=== PATIENT | female | born 1940 | race Caucasian/White ===

== ENCOUNTER 2018-03-09 14:18 | Inpatient (IN) ==
[2018-03-09] MEDS ORDERED: 0.9 % Sodium Chloride 1,000 ML IVC ONE (14:35)
[2018-03-09 14:54] LABS: Basophils % 0.5 %; Eosinophils % 0.5 %; Hematocrit 37.8 % (35.3-44.9); Hemoglobin 13.9 g/dL (11.5-15.4); Immature Granulocytes % 0.5 % (0-4); Lymphocytes # 2.1 K/mcL (0.6-4.6); Lymphocytes % 27.2 %; Mean Corpuscular HGB Conc 36.8 g/dL (31.6-35.5); Mean Corpuscular Hemoglobin 31.5 pg (28.0-33.3); Mean Corpuscular Volume 85.7 fL (83.0-100.0); Mean Platelet Volume 9.2 fL (9.4-12.4); Monocytes # 0.6 K/mcL (0.0-1.3); Monocytes % 7.5 %; Neutrophils # 4.9 K/mcL (1.6-8.9); Platelet Count 218 K/mcL (140-400); Red Blood Count 4.41 M/mcL (3.82-4.97); Red Cell Distribution Width 13.8 % (11.5-14.5); Segmented Neutrophils % 63.8 %
[2018-03-09 15:19] LABS: Alanine Aminotransferase 21 Units/L (7-52); Albumin 4.3 g/dL (3.5-5.7); Albumin/Globulin Ratio 1.5 (1.1-2.2); Alkaline Phosphatase 60 Units/L (34-104); Aspartate Amino Transferase 23 Units/L (13-39); BUN/Creatinine Ratio 12 (6-26); Bilirubin,Total 0.6 mg/dL (0.3-1.0); Blood Urea Nitrogen 9 mg/dL (8-23); Calcium 9.3 mg/dL (8.6-10.3); Carbon Dioxide 26 mEq/L (23-29); Chloride 90 mEq/L (98-107); Globulin 2.9 g/dL (2.4-3.5); Glucose 143 mg/dL (70-105); Magnesium 1.7 mg/dL (1.6-2.6); Osmolality,Calculated 263 (280-300); Phosphorous 2.1 mg/dL (2.7-4.5); Potassium 2.8 mEq/L (3.5-5.1); Sodium 126 mEq/L (136-145); Total Protein 7.2 g/dL (6.4-8.9); Troponin I < 0.03 ng/mL (< 0.04); eGFR For African Americans > 60 (> 60); eGFR For Non-African Americans > 60 (> 60)
[2018-03-09] MEDS ORDERED: Potassium Chloride 40 MEQ, Lidocaine 1% 2 ML in D5% in Water 500 ML IVPB ONE (15:34)
[2018-03-09 15:49] LABS: Bilirubin,Urine Negative (Negative); Blood,Urine Negative (Negative); Clarity,Urine Clear (Clear); Color,Urine Yellow (Yellow); Glucose,Urine (UA) Normal (Normal); Ketones,Urine Negative (Negative); Leukocyte Esterase,Urine Trace (Negative); Nitrite,Urine Negative (Negative); Protein,Urine Negative (Neg-Trace); Urobilinogen,Urine Normal (Normal)
[2018-03-09 16:05] LABS: Bacteria,Urine Few per hpf (None-Few); Renal Epithelial Cells,Urine Few per hpf (None-Few); Squamous Epithelial Cell,Urine Few per lpf (None-Few); Transitional Epi Cells,Urine Few per hpf (None-Few); WBC,Urine 0-3 per hpf (0-3)
[2018-03-09 16:29] LABS: VBG Ionized Calcium 1.05 mmol/L (1.15-1.35)
--- NOTE | 2018-03-09 17:00 | Emergency Department Note ---
Disposition Clinical Impression: Hyponatremia, Hypokalemia Disposition: Admitted As Inpatient Condition: Good Referrals: Conor Braxton MD [Primary Care Provider] - Time of Disposition: 16:30 General Adult HPI - General Chief complaint: ED General Medical Stated complaint: Potasium/sodium LOW Time Seen by Provider: 03/09/18 14:24 Source: patient Mode of arrival: ambulatory Limitations: no limitations Nursing Notes Reviewed: Yes Vital Signs Reviewed: Yes - History of Present Illness Pain Scale: 4 - Related Data Home Medications Medication Instructions Recorded Confirmed Aripiprazole [Abilify] 0 mg PO QPM 03/09/18 03/09/18 Clopidogrel [Plavix] 75 mg PO QPM 03/09/18 03/09/18 Diclofenac Sodium [Voltaren] 1 appl TP QID PRN 03/09/18 03/09/18 HYDROcodone/Acet 5/325 mg [[place] 0.5 - 1 tab PO BID PRN 03/09/18 03/09/18 5-325 mg] Hydrocortisone Rectal CRM 1 appl RC BID 03/09/18 03/09/18 [Proctosol-HC] Ketorolac Tromethamine [Acular] 1 drop BOTH EYES DAILY 03/09/18 03/09/18 LORazepam [Ativan] 0.5 mg PO BID PRN 03/09/18 03/09/18 Levothyroxine [Synthroid] 150 mcg PO DAILY 03/09/18 03/09/18 Lidocaine Patch [Lidoderm 5% patch] 1 each TP DAILY PRN 03/09/18 03/09/18 Ondansetron HCl [Zofran] 4 mg PO Q8H PRN 03/09/18 03/09/18 Quetiapine Fumarate [SEROquel] 50 mg PO HS 03/09/18 03/09/18 Rosuvastatin Calcium [Crestor] 10 mg PO HS 03/09/18 03/09/18 Sertraline [Zoloft] 150 mg PO QPM 03/09/18 03/09/18 Valsartan [Diovan] 160 mg PO DAILY 03/09/18 03/09/18 Allergies Allergy/AdvReac Type Severity Reaction Status Date / Time acetaminophen [From Percocet] Allergy Itching Verified 03/09/18 16:38 codeine Allergy Itching Verified 03/09/18 16:38 Oxycodone [From Percocet] Allergy Itching Verified 03/09/18 16:38 Amoxicillin [From Augmentin] AdvReac Nausea Verified 03/09/18 16:38 cefuroxime [From Ceftin] AdvReac Itching Verified 03/09/18 16:38 clavulanic acid AdvReac Nausea Verified 03/09/18 16:38 [From Augmentin] Erythromycin Base AdvReac Nausea Verified 03/09/18 16:38 levofloxacin [From Levaquin] AdvReac Itching Verified 03/09/18 16:38 lisinopril AdvReac Cough Verified 03/09/18 16:38 melatonin AdvReac Itching Verified 03/09/18 16:38 naproxen AdvReac Itching Verified 03/09/18 16:38 tramadol AdvReac Itching Verified 03/09/18 16:38 fish Allergy Hives Uncoded 03/09/18 16:38 seeds,nuts AdvReac Diarrhea Uncoded 03/09/18 16:38 Past Medical History - Past Medical History Medical history: Reports: arthritis, coronary artery disease, GERD, hyperlipidemia, hypertension, thyroid disease, other Surgical history: Reports: angioplasty/stent, cataract, cholecystectomy, colectomy, hysterectomy, knee replacement Psychiatric history: Reports: anxiety, depression - Social History Smoking Status: Never smoker Smokeless Tobacco Status: No Alcohol use: Reports: none Drug use: Reports: none Physical Exam - General Limitations: no limitations General appearance: alert, appears intoxicated Course Vital Signs Temperature 98.3 F 03/09/18 14:19 Pulse Rate 85 03/09/18 14:19 Respiratory Rate 20 03/09/18 14:19 Blood Pressure 138/89 03/09/18 14:19 O2 Sat by Pulse Oximetry 98 03/09/18 14:19 Temperature 98.3 F 03/09/18 14:58 Pulse Rate 85 03/09/18 14:58 Respiratory Rate 20 03/09/18 14:58 Blood Pressure 138/89 03/09/18 14:58 O2 Sat by Pulse Oximetry 98 03/09/18 14:58 Oxygen Delivery Oxygen Delivery Room Air Medical Decision Making - Lab Data Result diagrams: 03/09/18 14:41 03/09/18 14:41 Lab Results 03/09/18 03/09/18 03/09/18 Range/Units 14:41 14:41 15:41 WBC 7.7 (4.3-11.1) K/mcL RBC 4.41 (3.82-4.97) M/mcL Hgb 13.9 (11.5-15.4) g/dL Hct 37.8 (35.3-44.9) % MCV 85.7 (83.0-100.0) fL MCH 31.5 (28.0-33.3) pg MCHC 36.8 H (31.6-35.5) g/dL RDW 13.8 (11.5-14.5) % Plt Count 218 (140-400) K/mcL MPV 9.2 L (9.4-12.4) fL Immature Gran % 0.5 (0-4) % Seg Neutrophils % 63.8 % Lymphocytes % 27.2 % Monocytes % 7.5 % Eosinophils % 0.5 % Basophils % 0.5 % Neutrophils # 4.9 (1.6-8.9) K/mcL Lymphocytes # 2.1 (0.6-4.6) K/mcL Monocytes # 0.6 (0.0-1.3) K/mcL Eosinophils # 0.0 (0.0-0.6) K/mcL Basophils # 0.0 (0.0-0.2) K/mcL Sodium 126 L (136-145) mEq/L Potassium 2.8 L (3.5-5.1) mEq/L Chloride 90 L (98-107) mEq/L Carbon Dioxide 26 (23-29) mEq/L BUN 9 (8-23) mg/dL Creatinine 0.78 (0.60-1.20) mg/dL Est GFR ( Amer) > 60 (> 60) Est GFR (Non-Af Amer) > 60 (> 60) BUN/Creatinine Ratio 12 (6-26) Glucose 143 H (70-105) mg/dL Calculated Osmolality 263 L (280-300) Calcium 9.3 (8.6-10.3) mg/dL Venous Ioniz Calcium (1.15-1.35) mmol/L Phosphorus 2.1 L (2.7-4.5) mg/dL Magnesium 1.7 (1.6-2.6) mg/dL Total Bilirubin 0.6 (0.3-1.0) mg/dL AST 23 (13-39) Units/L ALT 21 (7-52) Units/L Alkaline Phosphatase 60 (34-104) Units/L Troponin I < 0.03 (< 0.04) ng/mL Serum Total Protein 7.2 (6.4-8.9) g/dL Albumin 4.3 (3.5-5.7) g/dL Globulin 2.9 (2.4-3.5) g/dL Albumin/Globulin Ratio 1.5 (1.1-2.2) Urine Color Yellow (Yellow) Urine Clarity Clear (Clear) Urine pH 7.0 (5.0-8.0) pH Units Ur Specific [place] 1.010 (1.010-1.025) Urine Protein Negative (Neg-Trace) mg/dL Urine Glucose (UA) Normal (Normal) mg/dL Urine Ketones Negative (Negative) mg/dL Urine Blood Negative (Negative) Urine Nitrite Negative (Negative) Urine Bilirubin Negative (Negative) Urine Urobilinogen Normal (Normal) mg/dL Ur Leukocyte Esterase Trace H (Negative) Urine Microscopic WBC 0-3 (0-3) per hpf Ur Squamous Epith Cells Few (None-Few) per lpf Ur Transition Epith Cell Few (None-Few) per hpf Ur Renal Epithelial Cell Few (None-Few) per hpf Urine Bacteria Few (None-Few) per hpf Ur Culture Indicated? YES A (NO) 03/09/18 Range/Units 16:26 WBC (4.3-11.1) K/mcL RBC (3.82-4.97) M/mcL Hgb (11.5-15.4) g/dL Hct (35.3-44.9) % MCV (83.0-100.0) fL MCH (28.0-33.3) pg MCHC (31.6-35.5) g/dL RDW (11.5-14.5) % Plt Count (140-400) K/mcL MPV (9.4-12.4) fL Immature Gran % (0-4) % Seg Neutrophils % % Lymphocytes % % Monocytes % % Eosinophils % % Basophils % % Neutrophils # (1.6-8.9) K/mcL Lymphocytes # (0.6-4.6) K/mcL Monocytes # (0.0-1.3) K/mcL Eosinophils # (0.0-0.6) K/mcL Basophils # (0.0-0.2) K/mcL Sodium (136-145) mEq/L Potassium (3.5-5.1) mEq/L Chloride (98-107) mEq/L Carbon Dioxide (23-29) mEq/L BUN (8-23) mg/dL Creatinine (0.60-1.20) mg/dL Est GFR ( Amer) (> 60) Est GFR (Non-Af Amer) (> 60) BUN/Creatinine Ratio (6-26) Glucose (70-105) mg/dL Calculated Osmolality (280-300) Calcium (8.6-10.3) mg/dL Venous Ioniz Calcium 1.05 L (1.15-1.35) mmol/L Phosphorus (2.7-4.5) mg/dL Magnesium (1.6-2.6) mg/dL Total Bilirubin (0.3-1.0) mg/dL AST (13-39) Units/L ALT (7-52) Units/L Alkaline Phosphatase (34-104) Units/L Troponin I (< 0.04) ng/mL Serum Total Protein (6.4-8.9) g/dL Albumin (3.5-5.7) g/dL Globulin (2.4-3.5) g/dL Albumin/Globulin Ratio (1.1-2.2) Urine Color (Yellow) Urine Clarity (Clear) Urine pH (5.0-8.0) pH Units Ur Specific [place] (1.010-1.025) Urine Protein (Neg-Trace) mg/dL Urine Glucose (UA) (Normal) mg/dL Urine Ketones (Negative) mg/dL Urine Blood (Negative) Urine Nitrite (Negative) Urine Bilirubin (Negative) Urine Urobilinogen (Normal) mg/dL Ur Leukocyte Esterase (Negative) Urine Microscopic WBC (0-3) per hpf Ur Squamous Epith Cells (None-Few) per lpf Ur Transition Epith Cell (None-Few) per hpf Ur Renal Epithelial Cell (None-Few) per hpf Urine Bacteria (None-Few) per hpf Ur Culture Indicated? (NO) Attestation Statement - Attestation Attestation: I, Luis Eduardo Webster, examined this patient and my medical decision-making was reviewed with the EDUCATIONAL TECHNOLOGY COORDINATOR/PA/Advanced Practice Nurse/Resident Physician. I agree with the documented findings, disposition and treatment plan as described except to the extent set forth below. 77-year-old female presents emergency Department with concerns of increasing weakness, fatigue and dyspnea with exertion. Patient was seen by her PCP yesterday who diagnosed possible urinary tract infection and started on ciprofloxacin. Patient states symptoms did not improve, she was called by her primary care doctor last night about abnormal laboratory results. Patient was told that she was hyponatremic and hypokalemic. Patient has a potassium of 2.8. Sodium level is 126. Patient becomes weak and fatigued with exertion in the emergency department. She feels comfortable with the plan for admission hospital for further care and evaluation. Urinalysis did not show obvious urinary tract infection. We will send this for culture. Patient feels comfortable with this plan of action.
--- NOTE | 2018-03-09 17:16 | Emergency Department Note ---
Disposition Clinical Impression: Hyponatremia, Hypokalemia Disposition: Admitted As Inpatient Condition: Good Referrals: Conor Braxton MD [Primary Care Provider] - Forms: ED Satisfaction Letter, Work/School Release Time of Disposition: 17:15 General Adult HPI - General Chief complaint: ED General Medical Stated complaint: Potasium/sodium LOW Time Seen by Provider: 03/09/18 14:24 Source: patient Mode of arrival: ambulatory Limitations: no limitations Nursing Notes Reviewed: Yes Vital Signs Reviewed: Yes - History of Present Illness Pain Scale: 4 - Related Data Home Medications Medication Instructions Recorded Confirmed Aripiprazole [Abilify] 0 mg PO QPM 03/09/18 03/09/18 Clopidogrel [Plavix] 75 mg PO QPM 03/09/18 03/09/18 Diclofenac Sodium [Voltaren] 1 appl TP QID PRN 03/09/18 03/09/18 HYDROcodone/Acet 5/325 mg [[place] 0.5 - 1 tab PO BID PRN 03/09/18 03/09/18 5-325 mg] Hydrocortisone Rectal CRM 1 appl RC BID 03/09/18 03/09/18 [Proctosol-HC] Ketorolac Tromethamine [Acular] 1 drop BOTH EYES DAILY 03/09/18 03/09/18 LORazepam [Ativan] 0.5 mg PO BID PRN 03/09/18 03/09/18 Levothyroxine [Synthroid] 150 mcg PO DAILY 03/09/18 03/09/18 Lidocaine Patch [Lidoderm 5% patch] 1 each TP DAILY PRN 03/09/18 03/09/18 Ondansetron HCl [Zofran] 4 mg PO Q8H PRN 03/09/18 03/09/18 Quetiapine Fumarate [SEROquel] 50 mg PO HS 03/09/18 03/09/18 Rosuvastatin Calcium [Crestor] 10 mg PO HS 03/09/18 03/09/18 Sertraline [Zoloft] 150 mg PO QPM 03/09/18 03/09/18 Valsartan [Diovan] 160 mg PO DAILY 03/09/18 03/09/18 Allergies Allergy/AdvReac Type Severity Reaction Status Date / Time acetaminophen [From Percocet] Allergy Itching Verified 03/09/18 16:38 codeine Allergy Itching Verified 03/09/18 16:38 Oxycodone [From Percocet] Allergy Itching Verified 03/09/18 16:38 Amoxicillin [From Augmentin] AdvReac Nausea Verified 03/09/18 16:38 cefuroxime [From Ceftin] AdvReac Itching Verified 03/09/18 16:38 clavulanic acid AdvReac Nausea Verified 03/09/18 16:38 [From Augmentin] Erythromycin Base AdvReac Nausea Verified 03/09/18 16:38 levofloxacin [From Levaquin] AdvReac Itching Verified 03/09/18 16:38 lisinopril AdvReac Cough Verified 03/09/18 16:38 melatonin AdvReac Itching Verified 03/09/18 16:38 naproxen AdvReac Itching Verified 03/09/18 16:38 tramadol AdvReac Itching Verified 03/09/18 16:38 fish Allergy Hives Uncoded 03/09/18 16:38 seeds,nuts AdvReac Diarrhea Uncoded 03/09/18 16:38 Past Medical History - Past Medical History Medical history: Reports: arthritis, coronary artery disease, GERD, hyperlipidemia, hypertension, thyroid disease, other Surgical history: Reports: angioplasty/stent, cataract, cholecystectomy, colectomy, hysterectomy, knee replacement Psychiatric history: Reports: anxiety, depression - Social History Smoking Status: Never smoker Smokeless Tobacco Status: No Alcohol use: Reports: none Drug use: Reports: none Physical Exam - General Limitations: no limitations General appearance: alert, appears intoxicated Course Vital Signs Temperature 98.3 F 03/09/18 14:19 Pulse Rate 85 03/09/18 14:19 Respiratory Rate 20 03/09/18 14:19 Blood Pressure 138/89 03/09/18 14:19 O2 Sat by Pulse Oximetry 98 03/09/18 14:19 Temperature 98.3 F 03/09/18 14:58 Pulse Rate 85 03/09/18 14:58 Respiratory Rate 20 03/09/18 14:58 Blood Pressure 138/89 03/09/18 14:58 O2 Sat by Pulse Oximetry 98 03/09/18 14:58 Oxygen Delivery Oxygen Delivery Room Air Medical Decision Making - Lab Data Result diagrams: 03/09/18 14:41 03/09/18 14:41 Lab Results 03/09/18 03/09/18 03/09/18 Range/Units 14:41 14:41 15:41 WBC 7.7 (4.3-11.1) K/mcL RBC 4.41 (3.82-4.97) M/mcL Hgb 13.9 (11.5-15.4) g/dL Hct 37.8 (35.3-44.9) % MCV 85.7 (83.0-100.0) fL MCH 31.5 (28.0-33.3) pg MCHC 36.8 H (31.6-35.5) g/dL RDW 13.8 (11.5-14.5) % Plt Count 218 (140-400) K/mcL MPV 9.2 L (9.4-12.4) fL Immature Gran % 0.5 (0-4) % Seg Neutrophils % 63.8 % Lymphocytes % 27.2 % Monocytes % 7.5 % Eosinophils % 0.5 % Basophils % 0.5 % Neutrophils # 4.9 (1.6-8.9) K/mcL Lymphocytes # 2.1 (0.6-4.6) K/mcL Monocytes # 0.6 (0.0-1.3) K/mcL Eosinophils # 0.0 (0.0-0.6) K/mcL Basophils # 0.0 (0.0-0.2) K/mcL Sodium 126 L (136-145) mEq/L Potassium 2.8 L (3.5-5.1) mEq/L Chloride 90 L (98-107) mEq/L Carbon Dioxide 26 (23-29) mEq/L BUN 9 (8-23) mg/dL Creatinine 0.78 (0.60-1.20) mg/dL Est GFR ( Amer) > 60 (> 60) Est GFR (Non-Af Amer) > 60 (> 60) BUN/Creatinine Ratio 12 (6-26) Glucose 143 H (70-105) mg/dL Calculated Osmolality 263 L (280-300) Calcium 9.3 (8.6-10.3) mg/dL Venous Ioniz Calcium (1.15-1.35) mmol/L Phosphorus 2.1 L (2.7-4.5) mg/dL Magnesium 1.7 (1.6-2.6) mg/dL Total Bilirubin 0.6 (0.3-1.0) mg/dL AST 23 (13-39) Units/L ALT 21 (7-52) Units/L Alkaline Phosphatase 60 (34-104) Units/L Troponin I < 0.03 (< 0.04) ng/mL Serum Total Protein 7.2 (6.4-8.9) g/dL Albumin 4.3 (3.5-5.7) g/dL Globulin 2.9 (2.4-3.5) g/dL Albumin/Globulin Ratio 1.5 (1.1-2.2) Urine Color Yellow (Yellow) Urine Clarity Clear (Clear) Urine pH 7.0 (5.0-8.0) pH Units Ur Specific [place] 1.010 (1.010-1.025) Urine Protein Negative (Neg-Trace) mg/dL Urine Glucose (UA) Normal (Normal) mg/dL Urine Ketones Negative (Negative) mg/dL Urine Blood Negative (Negative) Urine Nitrite Negative (Negative) Urine Bilirubin Negative (Negative) Urine Urobilinogen Normal (Normal) mg/dL Ur Leukocyte Esterase Trace H (Negative) Urine Microscopic WBC 0-3 (0-3) per hpf Ur Squamous Epith Cells Few (None-Few) per lpf Ur Transition Epith Cell Few (None-Few) per hpf Ur Renal Epithelial Cell Few (None-Few) per hpf Urine Bacteria Few (None-Few) per hpf Ur Culture Indicated? YES A (NO) 03/09/18 Range/Units 16:26 WBC (4.3-11.1) K/mcL RBC (3.82-4.97) M/mcL Hgb (11.5-15.4) g/dL Hct (35.3-44.9) % MCV (83.0-100.0) fL MCH (28.0-33.3) pg MCHC (31.6-35.5) g/dL RDW (11.5-14.5) % Plt Count (140-400) K/mcL MPV (9.4-12.4) fL Immature Gran % (0-4) % Seg Neutrophils % % Lymphocytes % % Monocytes % % Eosinophils % % Basophils % % Neutrophils # (1.6-8.9) K/mcL Lymphocytes # (0.6-4.6) K/mcL Monocytes # (0.0-1.3) K/mcL Eosinophils # (0.0-0.6) K/mcL Basophils # (0.0-0.2) K/mcL Sodium (136-145) mEq/L Potassium (3.5-5.1) mEq/L Chloride (98-107) mEq/L Carbon Dioxide (23-29) mEq/L BUN (8-23) mg/dL Creatinine (0.60-1.20) mg/dL Est GFR ( Amer) (> 60) Est GFR (Non-Af Amer) (> 60) BUN/Creatinine Ratio (6-26) Glucose (70-105) mg/dL Calculated Osmolality (280-300) Calcium (8.6-10.3) mg/dL Venous Ioniz Calcium 1.05 L (1.15-1.35) mmol/L Phosphorus (2.7-4.5) mg/dL Magnesium (1.6-2.6) mg/dL Total Bilirubin (0.3-1.0) mg/dL AST (13-39) Units/L ALT (7-52) Units/L Alkaline Phosphatase (34-104) Units/L Troponin I (< 0.04) ng/mL Serum Total Protein (6.4-8.9) g/dL Albumin (3.5-5.7) g/dL Globulin (2.4-3.5) g/dL Albumin/Globulin Ratio (1.1-2.2) Urine Color (Yellow) Urine Clarity (Clear) Urine pH (5.0-8.0) pH Units Ur Specific [place] (1.010-1.025) Urine Protein (Neg-Trace) mg/dL Urine Glucose (UA) (Normal) mg/dL Urine Ketones (Negative) mg/dL Urine Blood (Negative) Urine Nitrite (Negative) Urine Bilirubin (Negative) Urine Urobilinogen (Normal) mg/dL Ur Leukocyte Esterase (Negative) Urine Microscopic WBC (0-3) per hpf Ur Squamous Epith Cells (None-Few) per lpf Ur Transition Epith Cell (None-Few) per hpf Ur Renal Epithelial Cell (None-Few) per hpf Urine Bacteria (None-Few) per hpf Ur Culture Indicated? (NO)
[2018-03-09] MEDS ORDERED: Naloxone 0.4 MG/ML INJ IVP PRN (18:12)
[2018-03-09] MEDS ORDERED: (Diclofenac Sodium [Voltaren] 1 APPL) TP PRN (18:19)
[2018-03-09] MEDS ORDERED: *HR* HYDROcodone/Acet 5/325 mg TABLET PO PRN (18:19)
[2018-03-09] MEDS ORDERED: Ondansetron ODT 4 MG TAB.RAPDIS PO PRN (18:19)
--- NOTE | 2018-03-09 18:35 | Emergency Department Note ---
Disposition Clinical Impression: Hyponatremia, Hypokalemia Disposition: Admitted As Inpatient Condition: Good General Adult HPI - General Chief complaint: ED General Medical Stated complaint: Potasium/sodium LOW Time Seen by Provider: 03/09/18 14:24 Source: patient Mode of arrival: ambulatory Limitations: no limitations Nursing Notes Reviewed: Yes Vital Signs Reviewed: Yes - History of Present Illness HPI Narrative: Patient is a 77-year-old female sent in for evaluation by her PCP after having abnormal lab results including hyponatremia and low potassium. The patient states that she has been feeling weak for the past 7 days and she was evaluated by her PCP yesterday in which she was diagnosed with a UTI and she Also had blood work done. Her labs came back abnormal she was told to come to the emergency department. The patient also states that prior to this weakness initiating she had 2 weeks of flu-like symptoms with mouth sores and diarrhea, however these symptoms have resolved. Pain Scale: 0 - Related Data Home Medications Medication Instructions Recorded Confirmed Aripiprazole [Abilify] 0 mg PO QPM 03/09/18 03/09/18 Clopidogrel [Plavix] 75 mg PO QPM 03/09/18 03/09/18 Diclofenac Sodium [Voltaren] 1 appl TP QID PRN 03/09/18 03/09/18 HYDROcodone/Acet 5/325 mg [[place] 0.5 - 1 tab PO BID PRN 03/09/18 03/09/18 5-325 mg] Hydrocortisone Rectal CRM 1 appl RC BID 03/09/18 03/09/18 [Proctosol-HC] Ketorolac Tromethamine [Acular] 1 drop BOTH EYES DAILY 03/09/18 03/09/18 LORazepam [Ativan] 0.5 mg PO BID PRN 03/09/18 03/09/18 Levothyroxine [Synthroid] 150 mcg PO DAILY 03/09/18 03/09/18 Lidocaine Patch [Lidoderm 5% patch] 1 each TP DAILY PRN 03/09/18 03/09/18 Ondansetron HCl [Zofran] 4 mg PO Q8H PRN 03/09/18 03/09/18 Quetiapine Fumarate [SEROquel] 50 mg PO HS 03/09/18 03/09/18 Rosuvastatin Calcium [Crestor] 10 mg PO HS 03/09/18 03/09/18 Sertraline [Zoloft] 150 mg PO QPM 03/09/18 03/09/18 Valsartan [Diovan] 160 mg PO DAILY 03/09/18 03/09/18 Allergies Allergy/AdvReac Type Severity Reaction Status Date / Time acetaminophen [From Percocet] Allergy Itching Verified 03/09/18 16:38 codeine Allergy Itching Verified 03/09/18 16:38 Oxycodone [From Percocet] Allergy Itching Verified 03/09/18 16:38 Amoxicillin [From Augmentin] AdvReac Nausea Verified 03/09/18 16:38 cefuroxime [From Ceftin] AdvReac Itching Verified 03/09/18 16:38 clavulanic acid AdvReac Nausea Verified 03/09/18 16:38 [From Augmentin] Erythromycin Base AdvReac Nausea Verified 03/09/18 16:38 levofloxacin [From Levaquin] AdvReac Itching Verified 03/09/18 16:38 lisinopril AdvReac Cough Verified 03/09/18 16:38 melatonin AdvReac Itching Verified 03/09/18 16:38 naproxen AdvReac Itching Verified 03/09/18 16:38 tramadol AdvReac Itching Verified 03/09/18 16:38 fish Allergy Hives Uncoded 03/09/18 16:38 seeds,nuts AdvReac Diarrhea Uncoded 03/09/18 16:38 All systems ED: reviewed and negative except as stated. Review of Systems: As Per HPI Constitutional: Reports: weakness. Denies: fever, chills Cardiovascular: Denies: chest pain, palpitations Respiratory: Denies: cough, dyspnea, wheezes Gastrointestinal: Denies: abdominal pain, nausea, vomiting Genitourinary: Denies: urgency, dysuria Musculoskeletal: Denies: back pain, neck pain Integumentary: Denies: rash Neurological: Denies: headache Past Medical History - Past Medical History Attestation: Yes The following information was validated with the patient. Medical history: Reports: arthritis, coronary artery disease, GERD, hyperlipidemia, hypertension, thyroid disease, other Surgical history: Reports: angioplasty/stent, cataract, cholecystectomy, colectomy, hysterectomy, knee replacement Psychiatric history: Reports: anxiety, depression - Social History Smoking Status: Never smoker Smokeless Tobacco Status: No Alcohol use: Reports: none Drug use: Reports: none Physical Exam CONSTITUTIONAL: A&O X 3, in no apparent distress HEAD: Normocephalic; atraumatic EYES: PERRL, no scleral icterus NOSE: The nose is normal in appearance without rhinorrhea NECK: No JVD or distended neck veins RESP: Normal chest excursion with respiration; breath sounds clear and equal bilaterally; no wheezes, rhonchi, or rales CARD: Regular rhythm, without murmurs, rub or gallop ABD: Non-distended; non-tender, soft, without rigidity, rebound or guarding,no pulsatile mass CHEST: No pain with palpation SKIN: Normal for age and race; warm and dry without diaphoresis ; no apparent lesions EXTREMITIES: Pulses are 2 plus and equal times 4 extremities, no peripheral edema or calf muscle pain - General Limitations: no limitations General appearance: alert, appears intoxicated Course Course Narrative: Patient will be evaluated for cardiac etiology of her weakness and also perform basic labs to evaluate for electrolyte abnormalities and check a urine for signs of urinary tract infection. - Reevaluation(s) Reevaluation #1: Patient's lab work came back resulted that she is currently hyponatremic and also has a low potassium. The potassium replacement will begin in the ED. We will also order normal saline fluids for the patient. We will hold on and biotics for patient's diagnosed UTI due to her urine indicating antibiotics at this time, however culture is indicated. She will be admitted to the hospital for further management. Vital Signs Temperature 98.3 F 03/09/18 14:19 Pulse Rate 85 03/09/18 14:19 Respiratory Rate 20 03/09/18 14:19 Blood Pressure 138/89 03/09/18 14:19 O2 Sat by Pulse Oximetry 98 03/09/18 14:19 Temperature 98.9 F 03/09/18 18:29 Pulse Rate 68 03/09/18 18:29 Respiratory Rate 17 03/09/18 18:29 Blood Pressure 146/80 03/09/18 18:29 O2 Sat by Pulse Oximetry 96 03/09/18 18:29 Oxygen Delivery Oxygen Delivery Room Air Medical Decision Making - Medical Records Medical records reviewed: Yes I reviewed the patient's medical records. - Lab Data Lab results reviewed: Yes I reviewed the patient's lab results. Result diagrams: 03/09/18 14:41 03/09/18 14:41 Lab Results 03/09/18 03/09/18 03/09/18 Range/Units 14:41 14:41 15:41 WBC 7.7 (4.3-11.1) K/mcL RBC 4.41 (3.82-4.97) M/mcL Hgb 13.9 (11.5-15.4) g/dL Hct 37.8 (35.3-44.9) % MCV 85.7 (83.0-100.0) fL MCH 31.5 (28.0-33.3) pg MCHC 36.8 H (31.6-35.5) g/dL RDW 13.8 (11.5-14.5) % Plt Count 218 (140-400) K/mcL MPV 9.2 L (9.4-12.4) fL Immature Gran % 0.5 (0-4) % Seg Neutrophils % 63.8 % Lymphocytes % 27.2 % Monocytes % 7.5 % Eosinophils % 0.5 % Basophils % 0.5 % Neutrophils # 4.9 (1.6-8.9) K/mcL Lymphocytes # 2.1 (0.6-4.6) K/mcL Monocytes # 0.6 (0.0-1.3) K/mcL Eosinophils # 0.0 (0.0-0.6) K/mcL Basophils # 0.0 (0.0-0.2) K/mcL Sodium 126 L (136-145) mEq/L Potassium 2.8 L (3.5-5.1) mEq/L Chloride 90 L (98-107) mEq/L Carbon Dioxide 26 (23-29) mEq/L BUN 9 (8-23) mg/dL Creatinine 0.78 (0.60-1.20) mg/dL Est GFR ( Amer) > 60 (> 60) Est GFR (Non-Af Amer) > 60 (> 60) BUN/Creatinine Ratio 12 (6-26) Glucose 143 H (70-105) mg/dL Calculated Osmolality 263 L (280-300) Calcium 9.3 (8.6-10.3) mg/dL Venous Ioniz Calcium (1.15-1.35) mmol/L Phosphorus 2.1 L (2.7-4.5) mg/dL Magnesium 1.7 (1.6-2.6) mg/dL Total Bilirubin 0.6 (0.3-1.0) mg/dL AST 23 (13-39) Units/L ALT 21 (7-52) Units/L Alkaline Phosphatase 60 (34-104) Units/L Troponin I < 0.03 (< 0.04) ng/mL Serum Total Protein 7.2 (6.4-8.9) g/dL Albumin 4.3 (3.5-5.7) g/dL Globulin 2.9 (2.4-3.5) g/dL Albumin/Globulin Ratio 1.5 (1.1-2.2) Urine Color Yellow (Yellow) Urine Clarity Clear (Clear) Urine pH 7.0 (5.0-8.0) pH Units Ur Specific [place] 1.010 (1.010-1.025) Urine Protein Negative (Neg-Trace) mg/dL Urine Glucose (UA) Normal (Normal) mg/dL Urine Ketones Negative (Negative) mg/dL Urine Blood Negative (Negative) Urine Nitrite Negative (Negative) Urine Bilirubin Negative (Negative) Urine Urobilinogen Normal (Normal) mg/dL Ur Leukocyte Esterase Trace H (Negative) Urine Microscopic WBC 0-3 (0-3) per hpf Ur Squamous Epith Cells Few (None-Few) per lpf Ur Transition Epith Cell Few (None-Few) per hpf Ur Renal Epithelial Cell Few (None-Few) per hpf Urine Bacteria Few (None-Few) per hpf Ur Culture Indicated? YES A (NO) 03/09/18 Range/Units 16:26 WBC (4.3-11.1) K/mcL RBC (3.82-4.97) M/mcL Hgb (11.5-15.4) g/dL Hct (35.3-44.9) % MCV (83.0-100.0) fL MCH (28.0-33.3) pg MCHC (31.6-35.5) g/dL RDW (11.5-14.5) % Plt Count (140-400) K/mcL MPV (9.4-12.4) fL Immature Gran % (0-4) % Seg Neutrophils % % Lymphocytes % % Monocytes % % Eosinophils % % Basophils % % Neutrophils # (1.6-8.9) K/mcL Lymphocytes # (0.6-4.6) K/mcL Monocytes # (0.0-1.3) K/mcL Eosinophils # (0.0-0.6) K/mcL Basophils # (0.0-0.2) K/mcL Sodium (136-145) mEq/L Potassium (3.5-5.1) mEq/L Chloride (98-107) mEq/L Carbon Dioxide (23-29) mEq/L BUN (8-23) mg/dL Creatinine (0.60-1.20) mg/dL Est GFR ( Amer) (> 60) Est GFR (Non-Af Amer) (> 60) BUN/Creatinine Ratio (6-26) Glucose (70-105) mg/dL Calculated Osmolality (280-300) Calcium (8.6-10.3) mg/dL Venous Ioniz Calcium 1.05 L (1.15-1.35) mmol/L Phosphorus (2.7-4.5) mg/dL Magnesium (1.6-2.6) mg/dL Total Bilirubin (0.3-1.0) mg/dL AST (13-39) Units/L ALT (7-52) Units/L Alkaline Phosphatase (34-104) Units/L Troponin I (< 0.04) ng/mL Serum Total Protein (6.4-8.9) g/dL Albumin (3.5-5.7) g/dL Globulin (2.4-3.5) g/dL Albumin/Globulin Ratio (1.1-2.2) Urine Color (Yellow) Urine Clarity (Clear) Urine pH (5.0-8.0) pH Units Ur Specific [place] (1.010-1.025) Urine Protein (Neg-Trace) mg/dL Urine Glucose (UA) (Normal) mg/dL Urine Ketones (Negative) mg/dL Urine Blood (Negative) Urine Nitrite (Negative) Urine Bilirubin (Negative) Urine Urobilinogen (Normal) mg/dL Ur Leukocyte Esterase (Negative) Urine Microscopic WBC (0-3) per hpf Ur Squamous Epith Cells (None-Few) per lpf Ur Transition Epith Cell (None-Few) per hpf Ur Renal Epithelial Cell (None-Few) per hpf Urine Bacteria (None-Few) per hpf Ur Culture Indicated? (NO) - Radiology Data Radiology results reviewed: Yes I reviewed the patient's radiology results. Chest X-Ray 03/09/18 14:35 IMPRESSION: No acute cardiopulmonary process. D/ / Carolina Hernandez MD / Carolina Hernandez MD Interpreting Provider: Carolina Hernandez MD - EKG Data EKG #1 EKG attestation: Yes I reviewed and interpreted this EKG. EKG results narrative: Shows sinus rhythm at a rate of 66 bpm. Normal axis. MS is 197, QRS is 90, QT is 4 and 32 and QTc is 4 and 46 and these are within normal limits. No signs of ST elevation, ST depression or Q waves present. No signs of ischemia.
--- NOTE | 2018-03-09 19:26 | Internal Med History&Physical ---
<HiralmadonnakimGurwinder chowdhury - Last Filed: 03/09/18 20:24> Date of Encounter: 03/09/18 Time of Encounter: 18:00 Internal Medicine - H&P: HPI Chief complaint: Weakness/Loss of appetite/Electrolyte imbalance Admitted From: Emergency Dept Plans for Post Hospital Care: Home History of present illness: Ms. Ha is a 77 year old female w/PMH of arthritis, CAD, GERD, HLD, HTN, and thyroid disease presents from the ED w/CC of weakness and loss of appetite which has become progressively worse over the past 2 weeks. Patient reports she went to PCP yesterday and was found to have electrolyte imbalance. Pts. daughter reports chills but is unsure of fever. Pt. reports having the flu 3 weeks ago accompanied by sores inside her mouth and diarrhea which have resolved. Pt. states only weakness and anorexia remain. Pt. reports SOB w/ exertion but denies nausea, vomiting, recent diarrhea, constipation, headache, changes in vision, chest pain, abdominal pain, dizziness, lightheadedness, numbness, tingling, pre-syncope, or syncope. Past Med Surg Social Fam HX - Past Medical History Source: patient, old records reviewed, obtained from family Medical history: arthritis, coronary artery disease, GERD, hyperlipidemia, hypertension, thyroid disease, other Additional medical history: artifical joints,cataracts Psychiatric history: anxiety, depression - Past Surgical History Surgical History: angioplasty/stent (x1), cataract (Bilateral), cholecystectomy , colectomy, hysterectomy (Total), knee replacement (Right) - Social History Smoking Status: Never smoker Smokeless Tobacco Status: No Alcohol use: none Drug use: none Current living situation: Home, With Family Activity Level: Independent ambulation Recent Out of Country Travel Within the Last 8 Weeks: No Exposure or Possible Exposure to Illness During Travel: No - Family History Mother Race: Family Member Ethnicity: Non- Living Status: Age at : 93 Cause of : Sepsis Hx Family Cancer: Yes (Breast) Hx Family GI Disorders: Yes (Colostomy) Hx Family Neurologic Disorders: Yes (Alzheimer's disease ) Brother Race: Family Member Ethnicity: Non- Living Status: Age at : 78 Cause of : COPD Hx Family Respiratory Disorders: Yes (COPD) Father Race: Family Member Ethnicity: Non- Living Status: Age at : 65 Cause of : Colon cancer Hx Family Cancer: Yes (Colon) Sister Race: Family Member Ethnicity: Non- Living Status: Age at : 67 Cause of : Pancreatic cancer Hx Family Cancer: Yes (Pancreatic) Internal Medicine - H&P: Meds Aripiprazole [Abilify] 0 mg PO QPM 03/09/18 [History] Clopidogrel [Plavix] 75 mg PO QPM 03/09/18 [History] Diclofenac Sodium [Voltaren] 1 appl TP QID PRN 03/09/18 [History] HYDROcodone/Acet 5/325 mg [[place] 5-325 mg] 0.5 - 1 tab PO BID PRN 03/09/18 [ History] Hydrocortisone Rectal CRM [Proctosol-HC] 1 appl RC BID 03/09/18 [History] Ketorolac Tromethamine [Acular] 1 drop BOTH EYES DAILY 03/09/18 [History] LORazepam [Ativan] 0.5 mg PO BID PRN 03/09/18 [History] Levothyroxine [Synthroid] 150 mcg PO DAILY 03/09/18 [History] Lidocaine Patch [Lidoderm 5% patch] 1 each TP DAILY PRN 03/09/18 [History] Ondansetron HCl [Zofran] 4 mg PO Q8H PRN 03/09/18 [History] Quetiapine Fumarate [SEROquel] 50 mg PO HS 03/09/18 [History] Rosuvastatin Calcium [Crestor] 10 mg PO HS 03/09/18 [History] Sertraline [Zoloft] 150 mg PO QPM 03/09/18 [History] Valsartan [Diovan] 160 mg PO DAILY 03/09/18 [History] 3 Allergy/AdvReac Type Severity Reaction Status Date / Time acetaminophen [From Percocet] Allergy Itching Verified 03/09/18 16:38 codeine Allergy Itching Verified 03/09/18 16:38 Oxycodone [From Percocet] Allergy Itching Verified 03/09/18 16:38 Amoxicillin [From Augmentin] AdvReac Nausea Verified 03/09/18 16:38 cefuroxime [From Ceftin] AdvReac Itching Verified 03/09/18 16:38 clavulanic acid AdvReac Nausea Verified 03/09/18 16:38 [From Augmentin] Erythromycin Base AdvReac Nausea Verified 03/09/18 16:38 levofloxacin [From Levaquin] AdvReac Itching Verified 03/09/18 16:38 lisinopril AdvReac Cough Verified 03/09/18 16:38 melatonin AdvReac Itching Verified 03/09/18 16:38 naproxen AdvReac Itching Verified 03/09/18 16:38 tramadol AdvReac Itching Verified 03/09/18 16:38 fish Allergy Hives Uncoded 03/09/18 16:38 seeds,nuts AdvReac Diarrhea Uncoded 03/09/18 16:38 All Systems PM: A 10-system review of systems was performed and is negative for pertinent findings except as documented above in the HPI. - Constitutional Constitutional: as per HPI, anorexia, chills, fatigue, weakness, no fever(s), no night sweats - EENT Eyes: no change in vision, no discharge, no pain, no photophobia Ears: no ear discharge, no ear pain, no tinnitus Nose, mouth and throat: as per HPI, mouth lesions (During flu dx. Resolved.), no dysphagia, no nasal discharge, no neck pain, no sore throat - Breasts Breasts: as per HPI - Cardiovascular Cardiovascular ROS IM: as per HPI, dyspnea on exertion, no chest pain, no diaphoresis, no dyspnea, no lightheadedness, no palpitations, no syncope - Respiratory Respiratory: as per HPI, dyspnea on exertion, no cough, no dyspnea, no wheezing , no excessive phlegm production - Gastrointestinal Gastrointestinal: diarrhea (During flu dx. Resolved. ), no abdominal pain, no hematemesis, no hematochezia, no melena, no nausea, no vomiting - Genitourinary Genitourinary: no change in urinary stream, no dysuria, no flank pain, no hematuria Menstruation: as per HPI, post hysterectomy (Total) - Musculoskeletal Musculoskeletal ROS IM: no numbness, no tingling - Integumentary Integumentary IM: no rash, no unusual bruising - Neurological Neurological ROS: as per HPI, weakness, no confusion, no convulsions, no focal weakness, no numbness, no tingling, no tremor(s) - Psychiatric Psychiatric: as per HPI, anxiety, depression - Endocrine Endocrine IM: as per HPI - Hematologic/Lymphatic Hematologic/Lymphatic: no easy bruising - Allergic/Immunologic Allergic/Immunologic: as per HPI - Constitutional Vitals: Temp Pulse Resp BP Pulse Ox 98.9 F 68 17 146/80 96 03/09/18 18:29 03/09/18 18:29 03/09/18 18:29 03/09/18 18:29 03/09/18 18:29 General appearance: Present: cooperative, mild distress (Weakness), A&O X 3, pleasant, obese, answers questions appropriately - Head Head exam: Present: atraumatic, normocephalic - Eye Eye exam: Present: PERRL, conjuntiva pink, sclera anicteric Pupils: Present: PERRL - ENT ENT exam: Present: mucous membranes dry, normal exam - Neck Neck exam general surgery: Present: normal inspection, supple, trachea midline. Absent: lymphadenopathy - Respiratory Respiratory exam: Present: CTAB. Absent: accessory muscle use, rales, rhonchi, wheezes - Cardiovascular Cardiovascular exam: Present: RRR, +S1, +S2. Absent: diastolic murmur, gallop, rubs, systolic murmur - GI/Abdominal GI/Abdominal exam: Present: normal bowel sounds, soft, no peritoneal signs. Absent: distended, tenderness - Rectal Rectal exam: Present: deferred - Additional comments: exam deferred. - Extremities Exam Extremities exam: Present: pedal edema (Non-pitting), warm, radial pulses palpable and symmetrical. Absent: calf tenderness, cyanotic - Back Exam Back exam: Present: normal inspection - Neurological Exam Neurological exam: Present: alert, CN II-XII intact, oriented X3, no focal deficits. Absent: pronater drift, facial droop, speech deficit - Psychiatric Psychiatric exam: Present: normal affect, normal mood - Skin Skin exam: Present: dry, intact Internal Med - H&P Results - Labs CBC & Chem 7: 03/09/18 14:41 03/09/18 14:41 - EKG Data EKG shows normal: sinus rhythm - EKG Data Prior EKG available for review: yes EKG comments: 03/09/18 19:34 EKG dated 01/10/16 shows sinus rhythm with low QRS voltage in precordial leads and possible anterior myocardial infarction (probably old). EKG dated 03/09/18 shows sinus rhythm with moderate voltage criteria for LVH. Consider normal variant. Possible anterior myocardial infarction (probably old) . - Diagnostic Studies Chest x-ray Additional comments: Impressions Chest X-Ray 03/09/18 14:35 IMPRESSION: No acute cardiopulmonary process. D/ / Carolina Hernandez MD / Carolina Hernandez MD Interpreting Provider: Carolina Hernandez MD - Assessment and plan (1) Electrolyte imbalance Current Visit: Yes Status: Acute Assessment and plan: Acute electrolyte imbalance w/sodium of 126, potassium of 2.8, chloride of 90, and phosphorus of 2.1 on admission. Pt. reports diarrhea and loss of appetite/ reduced oral and fluid intake for the past two weeks following flu dx three weeks ago. Pt. received 1L 0.9 NS in ED. Will continue 100 mL/HR and monitor sodium to not increase >8 mEq over 24 hour period. 40 mEq potassium IVPB given in ED. Will follow w/22 mEq potassium phosphate IVPB to continue to address potassium as well as phosphorus imbalance. Continuous cardiac telemetry. Monitor patient and follow-up labs @ 04:00. Cardiac diet and Nutrition consult for PO supplementation. Falls/safety precautions, up with assist, and bedrest with bathroom privileges with assist only. Pt and f/u labs to be monitored closely. Pt. discussed w/Dr. Funez who agrees w/plan of care. Pt. is moderate risk for further morbidity and further decline d/t severe electrolyte imbalance , current loss of appetite and reduced oral intake resulting in weakness and risk for falls/injury, hx, and risk factors. Observation. (2) Weakness Current Visit: Yes Status: Acute Assessment and plan: Acute weakness r/t current loss of appetite and dehydration. Nutrition consult for PO supplementation. Falls/safety precautions, up with assist, bedrest with bathroom privileges with assist only. PT/OT consults ordered to assess pts. strength and stability. Supplemental O2 w/titration and SpO2 monitoring for SOB. (3) Loss of appetite Current Visit: Yes Status: Acute Assessment and plan: Acute loss of appetite over the past two weeks. Pt. reports appetite diminished after having influenza 3 weeks ago. Cardiac diet. Nutrition consult ordered for by mouth supplementation of Vanilla-flavored Ensure. Monitor I&O and daily weight. (4) CAD (coronary artery disease) Current Visit: Yes Status: Chronic Assessment and plan: Hx of chronic CAD NH and stent placement x1. Continuous cardiac telemetry. Continue patient's Plavix, Crestor, and valsartan. Qualifiers: Coronary Disease-Associated Artery/Lesion type: [place] artery [place] vs. transplanted heart: [place] heart Associated angina: angina presence unspecified Qualified Code(s): I25.10 - Atherosclerotic heart disease of [place] coronary artery without angina pectoris (5) GERD (gastroesophageal reflux disease) Current Visit: Yes Status: Chronic Assessment and plan: Hx of chronic GERD. Continue patient's by mouth Zofran. IVP Protonix 40 mg daily. Qualifiers: Esophagitis presence: esophagitis presence not specified Qualified Code(s) : K21.9 - Gastro-esophageal reflux disease without esophagitis (6) HLD (hyperlipidemia) Current Visit: Yes Status: Chronic Assessment and plan: Hx of chronic HLD. Lipid panel in a.m. labs. Continue patient's Crestor. Qualifiers: Hyperlipidemia type: pure hypercholesterolemia Qualified Code(s): E78.00 - Pure hypercholesterolemia, unspecified; E78.0 - Pure hypercholesterolemia (7) HTN (hypertension) Current Visit: Yes Status: Chronic Assessment and plan: Hx of chronic HTN. Monitor pt. and VS. Continue pts. Valsartan. Qualifiers: Hypertension type: essential hypertension Qualified Code(s): I10 - Essential (primary) hypertension (8) Thyroid disease Current Visit: Yes Status: Chronic Assessment and plan: Hx of thyroid disease. Pt. reports removal of thyroid. Continue pts. Synthroid. (9) Anxiety and depression Current Visit: Yes Status: Chronic Assessment and plan: Hx of chronic anxiety and depression. Continue patient's Ativan and Zoloft. We will continue patient's Abilify when dosing can be verified with pts. pharmacy. Continue patient's Seroquel at bedtime. (10) Previous myocardial infarction older than 8 weeks Current Visit: Yes Status: Resolved Assessment and plan: Hx of previous NH order than 8 weeks. Patient reports stent placement 1. Continuous cardiac telemetry. Continue patient's Plavix and aspirin therapy. (11) DVT prophylaxis Current Visit: Yes Status: Acute Assessment and plan: Heparin 5,000 units SQ Q8 for DVT prophylaxis. Monitor pt. for signs of bleeding. - Time Spent With Patient Total time spent is greater than 50% in coordination of care (as documented) at patient's floor/unit and/or counseling patient: Greater than 35 minutes <Kandace Funez - Last Filed: 03/09/18 22:59> Date of Encounter: 03/09/18 Internal Medicine - H&P: HPI History of present illness: Ms. Ha is a 77 year old female All Systems PM: A 10-system review of systems was performed and is negative for pertinent findings except as documented above in the HPI. - Constitutional Vitals: Temp Pulse Resp BP Pulse Ox 98.6 F 71 16 132/79 93 03/09/18 22:45 03/09/18 22:45 03/09/18 22:45 03/09/18 22:45 03/09/18 22:45 Internal Med - H&P Results - Labs CBC & Chem 7: 03/09/18 14:41 03/09/18 14:41 Labs: Cardiac Enzymes 03/09/18 Range/Units 20:09 Troponin I < 0.03 (< 0.04) ng/mL - Attending Attestation I performed a history and physical exam of the patient and discussed her management with the GEAR TECHNICIAN. I reviewed the CNPs note and agree with the documented findings and plan of care - Time Spent With Patient Total time spent is greater than 50% in coordination of care (as documented) at patient's floor/unit and/or counseling patient:
[2018-03-09] MEDS: *HR* Heparin 5,000 UNIT/ML VIAL SQ SCH (20:13)
[2018-03-09] MEDS: Pantoprazole 40 MG VIAL IVP SCH (20:14)
[2018-03-09] MEDS: Hydrocortisone Rectal 2.5% CRM 28 GM TUBE RC SCH (20:14)
[2018-03-09] MEDS: *HR* LORazepam 0.5 MG TABLET PO PRN (20:26)
[2018-03-09] MEDS: 0.9 % Sodium Chloride 1,000 ML IVC SCH (20:27)
[2018-03-10 00:17] LABS: BUN/Creatinine Ratio 11 (6-26); Blood Urea Nitrogen 8 mg/dL (8-23); Calcium 8.8 mg/dL (8.6-10.3); Carbon Dioxide 25 mEq/L (23-29); Chloride 96 mEq/L (98-107); Glucose 113 mg/dL (70-105); Osmolality,Calculated 267 (280-300); Potassium 3.3 mEq/L (3.5-5.1); Sodium 129 mEq/L (136-145); eGFR For African Americans > 60 (> 60); eGFR For Non-African Americans > 60 (> 60)
[2018-03-10 03:35] LABS: Basophils % 0.5 %; Eosinophils # 0.1 K/mcL (0.0-0.6); Eosinophils % 0.8 %; Hematocrit 35.1 % (35.3-44.9); Hemoglobin 12.7 g/dL (11.5-15.4); Immature Granulocytes % 0.4 % (0-4); Lymphocytes # 3.3 K/mcL (0.6-4.6); Lymphocytes % 39.3 %; Mean Corpuscular HGB Conc 36.2 g/dL (31.6-35.5); Mean Corpuscular Hemoglobin 31.9 pg (28.0-33.3); Mean Corpuscular Volume 88.2 fL (83.0-100.0); Mean Platelet Volume 9.7 fL (9.4-12.4); Monocytes # 0.6 K/mcL (0.0-1.3); Monocytes % 7.1 %; Neutrophils # 4.4 K/mcL (1.6-8.9); Platelet Count 189 K/mcL (140-400); Red Blood Count 3.98 M/mcL (3.82-4.97); Red Cell Distribution Width 13.7 % (11.5-14.5); Segmented Neutrophils % 51.9 %
[2018-03-10 03:57] LABS: Alanine Aminotransferase 16 Units/L (7-52); Albumin 3.6 g/dL (3.5-5.7); Albumin/Globulin Ratio 1.4 (1.1-2.2); Alkaline Phosphatase 49 Units/L (34-104); Aspartate Amino Transferase 18 Units/L (13-39); BUN/Creatinine Ratio 9 (6-26); Bilirubin,Total 0.7 mg/dL (0.3-1.0); Blood Urea Nitrogen 7 mg/dL (8-23); Calcium 8.7 mg/dL (8.6-10.3); Carbon Dioxide 25 mEq/L (23-29); Chloride 97 mEq/L (98-107); Chol/HDL Ratio 2.5 (0-4.9); Cholesterol 121 mg/dL (< 200); Globulin 2.6 g/dL (2.4-3.5); Glucose 105 mg/dL (70-105); HDL Cholesterol 49 mg/dL (40-59); LDL Cholesterol,Calculated 44 mg/dL (0-99); Magnesium 1.6 mg/dL (1.6-2.6); Osmolality,Calculated 270 (280-300); Phosphorous 3.3 mg/dL (2.7-4.5); Potassium 3.1 mEq/L (3.5-5.1); Sodium 131 mEq/L (136-145); Total Protein 6.2 g/dL (6.4-8.9); Triglycerides 142 mg/dL (< 150); eGFR For African Americans > 60 (> 60); eGFR For Non-African Americans > 60 (> 60)
[2018-03-10 04:13] LABS: Thyroid Stimulating Hormone 1.452 mcIU/mL (0.340-5.600)
[2018-03-10] MEDS: *HR* Heparin 5,000 UNIT/ML VIAL SQ SCH ×3 (06:18→20:55)
[2018-03-10 07:58] LABS: Estimated Average Glucose 114 mg/dl; Hemoglobin A1C 5.6 %
[2018-03-10] MEDS: Hydrocortisone Rectal 2.5% CRM 28 GM TUBE RC SCH ×2 (08:24→21:05)
[2018-03-10] MEDS: Ketorolac OPTH Soln 5 ML BOTTLE BOTH EYES SCH (08:24)
[2018-03-10] MEDS: Valsartan 160 MG TABLET PO SCH (08:24)
[2018-03-10] MEDS: Pantoprazole 40 MG VIAL IVP SCH (08:24)
--- NOTE | 2018-03-10 15:34 | Internal Med Progress Note ---
Date of Encounter: 03/10/18 Time of Encounter: 09:10 - Assessment and plan (1) Electrolyte imbalance Current Visit: Yes Status: Acute Assessment and plan: Electrolyte imbalance secondary to poor by mouth intake and diarrhea for 2 weeks since diagnosis of flu 3 weeks ago. Sodium is improving, 131 today. Potassium has improved, 3.1 today. We will continue gentle IV fluid hydration to replete sodium, we will give by mouth supplementation for potassium. Patient still continues to have anorexia, states that she is not eating or drinking well. Continue gentle IV fluid hydration at 100 mils per hour. Repeat labs in the morning. (2) Weakness Current Visit: Yes Status: Acute Assessment and plan: Weakness secondary to dehydration and deconditioning status post 3 week history of flu diagnosis with decreased oral intake. Nutrition his been consulted for by mouth supplements. Physical therapy and occupational therapy will evaluate patient tomorrow Continue gentle IV fluid hydration Monitor for falls and safety. (3) Loss of appetite Current Visit: Yes Status: Acute Assessment and plan: 2 week history of anorexia. Onset after diagnosis of influenza. Nutrition is consult. Monitor labs and vitals. (4) CAD (coronary artery disease) Current Visit: Yes Status: Chronic Assessment and plan: Chronic. History of ID and stents. Telemetry Continue Plavix, Lipitor, Diovan Qualifiers: Coronary Disease-Associated Artery/Lesion type: [place] artery [place] vs. transplanted heart: [place] heart Associated angina: angina presence unspecified Qualified Code(s): I25.10 - Atherosclerotic heart disease of [place] coronary artery without angina pectoris (5) GERD (gastroesophageal reflux disease) Current Visit: Yes Status: Chronic Assessment and plan: Chronic. Continue PPI and antiemetics when necessary Qualifiers: Esophagitis presence: esophagitis presence not specified Qualified Code(s) : K21.9 - Gastro-esophageal reflux disease without esophagitis (6) HLD (hyperlipidemia) Current Visit: Yes Status: Chronic Assessment and plan: Chronic. Continue home medications. Lipid panel within normal limits. Qualifiers: Hyperlipidemia type: pure hypercholesterolemia Qualified Code(s): E78.00 - Pure hypercholesterolemia, unspecified; E78.0 - Pure hypercholesterolemia (7) HTN (hypertension) Current Visit: Yes Status: Chronic Assessment and plan: Chronic. Continue home medications. Qualifiers: Hypertension type: essential hypertension Qualified Code(s): I10 - Essential (primary) hypertension (8) Thyroid disease Current Visit: Yes Status: Chronic Assessment and plan: Chronic. Patient self-reports thyroidectomy. Continue home medications. (9) DVT prophylaxis Current Visit: Yes Status: Acute Assessment and plan: Plan subcutaneous 3 times daily (10) Previous myocardial infarction older than 8 weeks Current Visit: Yes Status: Resolved Assessment and plan: Prior history of ID and stent placement. Plan as above. (11) Anxiety and depression Current Visit: Yes Status: Chronic Assessment and plan: Chronic. Continue home medications. - Time Spent With Patient Total time spent is greater than 50% in coordination of care (as documented) at patient's floor/unit and/or counseling patient: less than 15 minutes - Subjective Interval history: Pt was seen and assessed at bedside at 9:10 AM. Patient appeared very tired after coming back from the bathroom. She is alert, awake, oriented, though she does seem a little off and drowsy at times. She denies any headache, nausea, vomiting, diarrhea, abdominal pain. She states that she is trying to eat though she has a decreased appetite. Patient is agreeable to seeing physical therapy and occupational therapy tomorrow due to her extended illness and weakness. - Constitutional Vitals: Temp Pulse Resp BP Pulse Ox 99.2 F 63 17 130/77 94 03/10/18 11:59 03/10/18 11:59 03/10/18 11:59 03/10/18 11:59 03/10/18 11:59 General appearance: Present: cooperative, mild distress (Weakness), A&O X 3, pleasant, no acute distress, obese, answers questions appropriately - Head Head exam: Present: atraumatic, normal inspection, normocephalic - Eye Eye exam: Present: normal appearance, conjuntiva pink, sclera anicteric - Neck Neck exam general surgery: Present: normal inspection, supple, trachea midline. Absent: lymphadenopathy, tenderness - Respiratory Respiratory exam: Present: CTAB. Absent: accessory muscle use, chest wall tenderness, rales, respiratory distress, rhonchi, wheezes - Cardiovascular Cardiovascular exam: Present: RRR, +S1, +S2. Absent: diastolic murmur, gallop, rubs, systolic murmur - GI/Abdominal GI/Abdominal exam: Present: normal bowel sounds, soft. Absent: distended, hepatomegaly, tenderness - Extremities Exam Extremities exam: Present: normal capillary refill, normal inspection, warm, radial pulses palpable and symmetrical. Absent: calf tenderness, cyanotic, pedal edema, tenderness - Neurological Exam Neurological exam: Present: alert, oriented X3, no focal deficits. Absent: facial droop, speech deficit - Skin Skin exam: Present: dry, intact, normal color, warm. Absent: rash Internal Medicine: Result - Labs CBC & Chem 7: 03/10/18 02:23 03/10/18 02:23 Labs: Short CBC 03/10/18 Range/Units 02:23 WBC 8.5 (4.3-11.1) K/mcL Hgb 12.7 (11.5-15.4) g/dL Hct 35.1 L (35.3-44.9) % Plt Count 189 (140-400) K/mcL Neutrophils # 4.4 (1.6-8.9) K/mcL BMP 03/09/18 03/09/18 03/10/18 20:09 23:50 02:23 Sodium Cancelled 129 L 131 L Potassium Cancelled 3.3 L 3.1 L Chloride Cancelled 96 L 97 L Carbon Dioxide Cancelled 25 25 BUN Cancelled 8 7 L Creatinine Cancelled 0.72 0.75 Glucose Cancelled 113 H 105 Calcium Cancelled 8.8 8.7 Cardiac Enzymes 03/09/18 03/10/18 Range/Units 20:09 02:23 Troponin I < 0.03 < 0.03 (< 0.04) ng/mL Liver Function 03/10/18 Range/Units 02:23 Total Bilirubin 0.7 (0.3-1.0) mg/dL AST 18 (13-39) Units/L ALT 16 (7-52) Units/L Alkaline Phosphatase 49 (34-104) Units/L Albumin 3.6 (3.5-5.7) g/dL Consult Discharge Plan - Plan Referrals: Conor Braxton MD [Primary Care Provider] -
[2018-03-10] MEDS: 0.9 % Sodium Chloride 1,000 ML IVC SCH ×2 (15:38→21:05)
[2018-03-10] MEDS: *HR* LORazepam 0.5 MG TABLET PO PRN (20:55)
[2018-03-11 05:08] LABS: Basophils % 0.5 %; Eosinophils # 0.1 K/mcL (0.0-0.6); Eosinophils % 1.3 %; Hematocrit 34.3 % (35.3-44.9); Hemoglobin 12.2 g/dL (11.5-15.4); Immature Granulocytes % 0.5 % (0-4); Lymphocytes # 3.4 K/mcL (0.6-4.6); Lymphocytes % 44.7 %; Mean Corpuscular HGB Conc 35.6 g/dL (31.6-35.5); Mean Corpuscular Hemoglobin 31.6 pg (28.0-33.3); Mean Corpuscular Volume 88.9 fL (83.0-100.0); Mean Platelet Volume 9.5 fL (9.4-12.4); Monocytes # 0.5 K/mcL (0.0-1.3); Monocytes % 6.4 %; Neutrophils # 3.5 K/mcL (1.6-8.9); Platelet Count 180 K/mcL (140-400); Red Blood Count 3.86 M/mcL (3.82-4.97); Red Cell Distribution Width 14.1 % (11.5-14.5); Segmented Neutrophils % 46.6 %
[2018-03-11 05:27] LABS: Alanine Aminotransferase 16 Units/L (7-52); Albumin 3.5 g/dL (3.5-5.7); Albumin/Globulin Ratio 1.4 (1.1-2.2); Alkaline Phosphatase 47 Units/L (34-104); Aspartate Amino Transferase 18 Units/L (13-39); BUN/Creatinine Ratio 12 (6-26); Bilirubin,Total 0.5 mg/dL (0.3-1.0); Blood Urea Nitrogen 9 mg/dL (8-23); Calcium 8.6 mg/dL (8.6-10.3); Carbon Dioxide 24 mEq/L (23-29); Chloride 103 mEq/L (98-107); Globulin 2.5 g/dL (2.4-3.5); Glucose 95 mg/dL (70-105); Osmolality,Calculated 276 (280-300); Potassium 3.2 mEq/L (3.5-5.1); Sodium 134 mEq/L (136-145); eGFR For African Americans > 60 (> 60); eGFR For Non-African Americans > 60 (> 60)
[2018-03-11] MEDS: *HR* Heparin 5,000 UNIT/ML VIAL SQ SCH ×3 (06:24→20:47)
[2018-03-11] MEDS: 0.9 % Sodium Chloride 1,000 ML IVC SCH ×2 (08:07→17:34)
[2018-03-11] MEDS: Ketorolac OPTH Soln 5 ML BOTTLE BOTH EYES SCH (08:08)
[2018-03-11] MEDS: Hydrocortisone Rectal 2.5% CRM 28 GM TUBE RC SCH ×2 (08:09→20:47)
[2018-03-11] MEDS: Valsartan 160 MG TABLET PO SCH (08:14)
[2018-03-11] MEDS: Pantoprazole 40 MG VIAL IVP SCH (08:14)
--- NOTE | 2018-03-11 15:27 | Electrocardiograph Report ---
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
[2018-03-11] MEDS ORDERED: 0.9 % Sodium Chloride 1,000 ML IVC SCH (18:00)
--- NOTE | 2018-03-11 18:51 | Internal Med Progress Note ---
Date of Encounter: 03/11/18 Time of Encounter: 10:50 - Assessment and plan (1) Electrolyte imbalance Current Visit: Yes Status: Acute Assessment and plan: Sodium Improving. 134 today. Potassium has improved, 3.1 today. We will continue gentle IV fluid hydration to replete sodium, we will give by mouth supplementation for potassium. Appetite is improving Continue gentle IV fluid hydration at 60 mils per hour. Repeat labs in the morning. (2) Weakness Current Visit: Yes Status: Acute Assessment and plan: Weakness secondary to dehydration and deconditioning status post 3 week history of flu diagnosis with decreased oral intake. Occupational therapy has identified no needs. Physical therapy note not entered yet. Continue gentle IV fluid hydration Monitor for falls and safety. Patient states that she would like to get up today. Reports that she needs another day due to weakness (3) Loss of appetite Current Visit: Yes Status: Acute Assessment and plan: Improving. Nutrition has recommended ensure and live twice a day. Monitor labs and vitals. (4) CAD (coronary artery disease) Current Visit: Yes Status: Chronic Assessment and plan: Chronic. History of GA and stents. Telemetry Continue Plavix, Lipitor, Diovan Qualifiers: Coronary Disease-Associated Artery/Lesion type: [place] artery [place] vs. transplanted heart: [place] heart Associated angina: angina presence unspecified Qualified Code(s): I25.10 - Atherosclerotic heart disease of [place] coronary artery without angina pectoris (5) GERD (gastroesophageal reflux disease) Current Visit: Yes Status: Chronic Assessment and plan: Chronic. Continue home medications. Patient denies new symptoms. Qualifiers: Esophagitis presence: esophagitis presence not specified Qualified Code(s) : K21.9 - Gastro-esophageal reflux disease without esophagitis (6) HLD (hyperlipidemia) Current Visit: Yes Status: Chronic Assessment and plan: Chronic. Continue home medications. Qualifiers: Hyperlipidemia type: pure hypercholesterolemia Qualified Code(s): E78.00 - Pure hypercholesterolemia, unspecified; E78.0 - Pure hypercholesterolemia (7) HTN (hypertension) Current Visit: Yes Status: Chronic Assessment and plan: Stable. Continue current medications. Qualifiers: Hypertension type: essential hypertension Qualified Code(s): I10 - Essential (primary) hypertension (8) Thyroid disease Current Visit: Yes Status: Chronic Assessment and plan: Chronic. Continue home medications. (9) DVT prophylaxis Current Visit: Yes Status: Acute Assessment and plan: Plan subcutaneous 3 times daily. Encourage ambulation. (10) Previous myocardial infarction older than 8 weeks Current Visit: Yes Status: Resolved (11) Anxiety and depression Current Visit: Yes Status: Chronic - Time Spent With Patient Total time spent is greater than 50% in coordination of care (as documented) at patient's floor/unit and/or counseling patient: - Subjective Interval history: Pt was seen and assessed at bedside at 1050 AM. Patient appears to have improved since yesterday. She is alert, awake, oriented, and is more alert and conversive than yesterday. She denies any headache, nausea, vomiting, diarrhea , abdominal pain. She states that she is trying to eat though she has a decreased appetite and states that she is eating more than yesterday. Patient reports that she is feeling better, states that she would like to have another day to be able to walk and try to get some of her strength back before she goes home. - Constitutional Vitals: Temp Pulse Resp BP Pulse Ox 98.2 F 76 14 145/84 96 03/11/18 16:05 03/11/18 16:05 03/11/18 16:05 03/11/18 16:05 03/11/18 16:05 General appearance: Present: cooperative, mild distress (Weakness), A&O X 3, pleasant, no acute distress, obese, answers questions appropriately - Head Head exam: Present: atraumatic, normal inspection, normocephalic - Eye Eye exam: Present: conjuntiva pink, sclera anicteric - Neck Neck exam general surgery: Present: supple, trachea midline. Absent: lymphadenopathy, tenderness - Respiratory Respiratory exam: Present: CTAB. Absent: accessory muscle use, rales, respiratory distress, rhonchi, wheezes - Cardiovascular Cardiovascular exam: Present: RRR, +S1, +S2. Absent: diastolic murmur, gallop, rubs, systolic murmur - GI/Abdominal GI/Abdominal exam: Present: normal bowel sounds, soft, no peritoneal signs. Absent: distended, hepatomegaly, tenderness - Extremities Exam Extremities exam: Present: normal capillary refill, normal inspection, warm, radial pulses palpable and symmetrical. Absent: calf tenderness, cyanotic, pedal edema - Neurological Exam Neurological exam: Present: alert, oriented X3, no focal deficits. Absent: altered, facial droop, speech deficit - Skin Skin exam: Present: dry, intact, warm. Absent: rash Internal Medicine: Result - Labs CBC & Chem 7: 03/11/18 04:33 03/11/18 04:33 Labs: Short CBC 03/11/18 Range/Units 04:33 WBC 7.6 (4.3-11.1) K/mcL Hgb 12.2 (11.5-15.4) g/dL Hct 34.3 L (35.3-44.9) % Plt Count 180 (140-400) K/mcL Neutrophils # 3.5 (1.6-8.9) K/mcL BMP 03/10/18 03/11/18 20:05 04:33 Sodium 134 L Potassium 3.1 L 3.2 L Chloride 103 Carbon Dioxide 24 BUN 9 Creatinine 0.74 Glucose 95 Calcium 8.6 Liver Function 03/11/18 Range/Units 04:33 Total Bilirubin 0.5 (0.3-1.0) mg/dL AST 18 (13-39) Units/L ALT 16 (7-52) Units/L Alkaline Phosphatase 47 (34-104) Units/L Albumin 3.5 (3.5-5.7) g/dL Consult Discharge Plan - Plan Referrals: Conor Braxton MD [Primary Care Provider] -
[2018-03-11] MEDS: *HR* LORazepam 0.5 MG TABLET PO PRN (20:47)
[2018-03-12] MEDS: *HR* Heparin 5,000 UNIT/ML VIAL SQ SCH (06:00)
[2018-03-12 06:37] LABS: Basophils % 0.5 %; Eosinophils # 0.2 K/mcL (0.0-0.6); Eosinophils % 1.9 %; Hematocrit 34.4 % (35.3-44.9); Hemoglobin 12.1 g/dL (11.5-15.4); Immature Granulocytes % 0.4 % (0-4); Lymphocytes # 3.8 K/mcL (0.6-4.6); Lymphocytes % 45.2 %; Mean Corpuscular HGB Conc 35.2 g/dL (31.6-35.5); Mean Corpuscular Hemoglobin 31.9 pg (28.0-33.3); Mean Corpuscular Volume 90.8 fL (83.0-100.0); Mean Platelet Volume 9.7 fL (9.4-12.4); Monocytes # 0.5 K/mcL (0.0-1.3); Monocytes % 5.7 %; Neutrophils # 3.9 K/mcL (1.6-8.9); Platelet Count 162 K/mcL (140-400); Red Blood Count 3.79 M/mcL (3.82-4.97); Red Cell Distribution Width 14.5 % (11.5-14.5); Segmented Neutrophils % 46.3 %
[2018-03-12 06:55] LABS: Alanine Aminotransferase 15 Units/L (7-52); Albumin 3.4 g/dL (3.5-5.7); Albumin/Globulin Ratio 1.4 (1.1-2.2); Alkaline Phosphatase 44 Units/L (34-104); Aspartate Amino Transferase 16 Units/L (13-39); BUN/Creatinine Ratio 16 (6-26); Bilirubin,Total 0.5 mg/dL (0.3-1.0); Blood Urea Nitrogen 13 mg/dL (8-23); Calcium 8.5 mg/dL (8.6-10.3); Carbon Dioxide 20 mEq/L (23-29); Chloride 105 mEq/L (98-107); Globulin 2.4 g/dL (2.4-3.5); Glucose 91 mg/dL (70-105); Osmolality,Calculated 282 (280-300); Potassium 3.8 mEq/L (3.5-5.1); Sodium 136 mEq/L (136-145); Total Protein 5.8 g/dL (6.4-8.9); eGFR For African Americans > 60 (> 60); eGFR For Non-African Americans > 60 (> 60)
[2018-03-12] MEDS: Valsartan 160 MG TABLET PO SCH (09:38)
[2018-03-12] MEDS: Pantoprazole 40 MG VIAL IVP SCH (09:40)
[2018-03-12] MEDS: Hydrocortisone Rectal 2.5% CRM 28 GM TUBE RC SCH (09:40)
[2018-03-12] MEDS: Ketorolac OPTH Soln 5 ML BOTTLE BOTH EYES SCH (09:40)
[2018-03-12 11:27] VITALS: BP 143/83
--- NOTE | 2018-03-12 12:59 | Discharge Summary ---
- NOTES TO OUTPATIENT PROVIDER Notes to Outpatient Provider: Patient with weakness secondary to dehydration and deconditioning status post flu diagnosis 3 weeks ago. Was given IV fluid and improved. Instructed to follow-up with PCP within 1 week of discharge. Additionally, was noted to have an electrolyte imbalance with some hyponatremia as well as hypokalemia. Sodium and potassium improved prior to discharge Date of Encounter: 03/12/18 Time of Encounter: 12:57 - Discharge Diagnosis (1) Weakness Priority: Primary Status: Acute Assessment and Plan: Weakness secondary to dehydration and deconditioning Patient is status post influenza 3 weeks ago Reporting a loss of appetite and decreased oral intake Patient reports that her strength is returning and weakness was resolving Able to tolerate oral intake today Electrolytes improving and WNL per Today's labs Uneventful hospital course No needs identified per occupational therapy, no difficulties with independent ambulation today Patient is medically stable and ready for discharge. She has been instructed to follow-up with PCP within 1 week of discharge. Additionally, she has been informed that she should return to the ED showed weakness persist or worsen. Patient is progressing back to baseline but is not quite at baseline yet. She was offered additional days stay for further therapy and treatment however she declined. (2) Electrolyte imbalance Priority: Secondary Status: Acute Assessment and Plan: During admission patient has had hypokalemia and hyponatremia Sodium Improving today with serum sodium of 136 Potassium has improved today with serum potassium of 3.8 Appetite is improving (3) Loss of appetite Priority: Secondary Status: Resolved Assessment and Plan: Improving, patient tolerating oral intake (4) CAD (coronary artery disease) Priority: Secondary Status: Chronic Assessment and Plan: History of CAD, MS and stents. Continue Plavix, Lipitor, Diovan Qualifiers: Coronary Disease-Associated Artery/Lesion type: [place] artery [place] vs. transplanted heart: [place] heart Associated angina: angina presence unspecified Qualified Code(s): I25.10 - Atherosclerotic heart disease of [place] coronary artery without angina pectoris (5) GERD (gastroesophageal reflux disease) Priority: Secondary Status: Chronic Assessment and Plan: Continue PPI Qualifiers: Esophagitis presence: esophagitis presence not specified Qualified Code(s) : K21.9 - Gastro-esophageal reflux disease without esophagitis (6) HLD (hyperlipidemia) Priority: Secondary Status: Chronic Assessment and Plan: Continue statin Qualifiers: Hyperlipidemia type: pure hypercholesterolemia Qualified Code(s): E78.00 - Pure hypercholesterolemia, unspecified; E78.0 - Pure hypercholesterolemia (7) HTN (hypertension) Priority: Secondary Status: Chronic Assessment and Plan: Stable throughout stay, continue anti-HTN medications Qualifiers: Hypertension type: essential hypertension Qualified Code(s): I10 - Essential (primary) hypertension (8) Thyroid disease Priority: Secondary Status: Chronic Assessment and Plan: Continue Synthroid (9) Anxiety and depression Priority: Secondary Status: Chronic Assessment and Plan: Chronic. Continue home medications at discharge Hospital course: Ms. Ha is a 77 year old female See assessment and plan for hospital course Discharge discussed with: patient, nurse, social work, case management - Time Spent with Patient Total time spent providing and/or coordinating discharge services: Less than 30 minutes - Discharge Medications Home Medications: Aripiprazole [Abilify] 0 mg PO QPM 03/09/18 [History] Clopidogrel [Plavix] 75 mg PO QPM 03/09/18 [History] Diclofenac Sodium [Voltaren] 1 appl TP QID PRN 03/09/18 [History] HYDROcodone/Acet 5/325 mg [[place] 5-325 mg] 0.5 - 1 tab PO BID PRN 03/09/18 [ History] Hydrocortisone Rectal CRM [Proctosol-Hc] 1 appl RC BID 03/09/18 [History] Ketorolac Tromethamine [Acular] 1 drop BOTH EYES DAILY 03/09/18 [History] LORazepam [Ativan] 0.5 mg PO BID PRN 03/09/18 [History] Levothyroxine [Synthroid] 150 mcg PO DAILY 03/09/18 [History] Lidocaine Patch [Lidoderm 5% patch] 1 each TP DAILY PRN 03/09/18 [History] Ondansetron HCl [Zofran] 4 mg PO Q8H PRN 03/09/18 [History] Quetiapine Fumarate [Seroquel] 50 mg PO HS 03/09/18 [History] Rosuvastatin Calcium [Crestor] 10 mg PO HS 03/09/18 [History] Sertraline [Zoloft] 150 mg PO QPM 03/09/18 [History] Valsartan [Diovan] 160 mg PO DAILY 03/09/18 [History] Allergies/Adverse Reactions: 3 Allergy/AdvReac Type Severity Reaction Status Date / Time acetaminophen [From Percocet] Allergy Itching Verified 03/09/18 16:38 codeine Allergy Itching Verified 03/09/18 16:38 Oxycodone [From Percocet] Allergy Itching Verified 03/09/18 16:38 Amoxicillin [From Augmentin] AdvReac Nausea Verified 03/09/18 16:38 cefuroxime [From Ceftin] AdvReac Itching Verified 03/09/18 16:38 clavulanic acid AdvReac Nausea Verified 03/09/18 16:38 [From Augmentin] Erythromycin Base AdvReac Nausea Verified 03/09/18 16:38 levofloxacin [From Levaquin] AdvReac Itching Verified 03/09/18 16:38 lisinopril AdvReac Cough Verified 03/09/18 16:38 melatonin AdvReac Itching Verified 03/09/18 16:38 naproxen AdvReac Itching Verified 03/09/18 16:38 tramadol AdvReac Itching Verified 03/09/18 16:38 fish Allergy Hives Uncoded 03/09/18 16:38 seeds,nuts AdvReac Diarrhea Uncoded 03/09/18 16:38 Date of admission: 03/10/18 14:44 Primary care physician: Conor Braxton MD Discharging clinician: Ernst Aguayo Anticipated date of discharge: 03/12/18 - Constitutional Vitals: Temp Pulse Resp BP Pulse Ox 98.2 F 70 16 143/83 96 03/12/18 11:25 03/12/18 11:25 03/12/18 11:25 03/12/18 11:25 03/12/18 11:25 General appearance: Present: cooperative, mild distress (Weakness), A&O X 3, pleasant, no acute distress, obese, answers questions appropriately - Head Head exam: Present: atraumatic, normocephalic - Eye Eye exam: Present: PERRL, conjuntiva pink, sclera anicteric Pupils: Present: PERRL - Neck Neck exam general surgery: Present: supple, trachea midline. Absent: lymphadenopathy - Respiratory Respiratory exam: Present: CTAB. Absent: accessory muscle use, rales, rhonchi, wheezes - Cardiovascular Cardiovascular exam: Present: RRR, +S1, +S2. Absent: diastolic murmur, gallop, rubs, systolic murmur - GI/Abdominal GI/Abdominal exam: Present: normal bowel sounds, soft, no peritoneal signs. Absent: distended, tenderness - Extremities Exam Extremities exam: Present: warm, radial pulses palpable and symmetrical. Absent : calf tenderness, cyanotic, pedal edema - Neurological Exam Neurological exam: Present: CN II-XII intact, oriented X3, no focal deficits. Absent: pronater drift, facial droop, speech deficit - Skin Skin exam: Present: dry, intact - Patient Status Disposition: Home, Self-Care Condition: Good Overall status at discharge: patient is progressing back to baseline - Discharge Instructions Follow Up With: Conor Braxton MD [Primary Care Provider] - - Diet and Activity Activity: increase activity as tolerated, resume usual activities as tolerated Diet: advance to your usual diet
== END 2018-03-12 14:42 | disposition home or self-care (01) | DRG 640 ==
LOC: 3BNU 14:18 → EMEROO 14:18 → 3BNU 18:27
PROVIDERS: ADMIT Internal Medicine; ATTEND Internal Medicine

== ENCOUNTER 2018-03-19 11:07 | Inpatient (IN) ==
[2018-03-19] MEDS ORDERED: 0.9 % Sodium Chloride 1,000 ML IVC ONE (12:17)
--- NOTE | 2018-03-19 12:20 | Emergency Department Note ---
Disposition Clinical Impression: Hyponatremia, Generalized weakness Disposition: Admitted As Inpatient Condition: Undetermined Time of Disposition: 13:32 Weakness HPI - General Chief complaint: ED Weakness Stated complaint: "weakness" Time Seen by Provider: 03/19/18 11:56 Source: patient Mode of arrival: ambulatory Limitations: no limitations Nursing Notes Reviewed: Yes Vital Signs Reviewed: Yes - History of Present Illness HPI Narrative: 77-year-old female with complaint of generalized weakness. The patient was recently discharged roughly 7 days ago from the hospital for similar complaint. The patient was found to be hypokalemic at that time. The patient has gained a little bit of strength since leaving the hospital but is in still eating better than she was but still feels generalized weakness. The patient states that she is having trouble taking care of herself at home and is unsure if she is able to do anything other than when she lays down. The patient was evaluated by occupational health 1 admitted and was said that she would benefit from occupational health but no further occupational health was set up. In addition the patient has been smacking her lips and rotating her hands uncontrollably for the past few weeks. The patient is currently on to antipsychotic medications. The patient denies any purposeful movements with this and states this is new. She denies any specific complaints including numbness, tingling, headaches, fevers, chills, dyspnea, chest pain, abdominal pain, nausea, vomiting, diarrhea. She is resting comfortably and is alert and oriented in the room. She is baseline mental status per family members. They are more worried about the patient's generalized weakness. Pain Scale: 4 - Related Data Home Medications Medication Instructions Recorded Confirmed Aripiprazole [Abilify] 0 mg PO QPM 03/09/18 03/19/18 Clopidogrel [Plavix] 75 mg PO QPM 03/09/18 03/19/18 Diclofenac Sodium [Voltaren] 1 appl TP QID PRN 03/09/18 03/19/18 HYDROcodone/Acet 5/325 mg [[place] 0.5 - 1 tab PO BID PRN 03/09/18 03/19/18 5-325 mg] Hydrocortisone Rectal CRM 1 appl RC BID 03/09/18 03/19/18 [Proctosol-Hc] Ketorolac Tromethamine [Acular] 1 drop BOTH EYES DAILY 03/09/18 03/19/18 LORazepam [Ativan] 0.5 mg PO BID PRN 03/09/18 03/19/18 Levothyroxine [Synthroid] 150 mcg PO DAILY 03/09/18 03/19/18 Lidocaine Patch [Lidoderm 5% patch] 1 each TP DAILY PRN 03/09/18 03/19/18 Ondansetron HCl [Zofran] 4 mg PO Q8H PRN 03/09/18 03/19/18 Quetiapine Fumarate [Seroquel] 50 mg PO HS 03/09/18 03/19/18 Rosuvastatin Calcium [Crestor] 10 mg PO HS 03/09/18 03/19/18 Sertraline [Zoloft] 150 mg PO QPM 03/09/18 03/19/18 Valsartan [Diovan] 160 mg PO DAILY 03/09/18 03/19/18 Allergies Allergy/AdvReac Type Severity Reaction Status Date / Time codeine Allergy Itching Verified 03/19/18 13:51 Oxycodone [From Percocet] Allergy Itching Verified 03/19/18 13:51 Amoxicillin [From Augmentin] AdvReac Nausea Verified 03/19/18 13:51 cefuroxime [From Ceftin] AdvReac Itching Verified 03/19/18 13:51 clavulanic acid AdvReac Nausea Verified 03/19/18 13:51 [From Augmentin] Erythromycin Base AdvReac Nausea Verified 03/19/18 13:51 levofloxacin [From Levaquin] AdvReac Itching Verified 03/19/18 13:51 lisinopril AdvReac Cough Verified 03/19/18 13:51 melatonin AdvReac Itching Verified 03/19/18 13:51 naproxen AdvReac Itching Verified 03/19/18 13:51 tramadol AdvReac Itching Verified 03/19/18 13:51 fish Allergy Hives Uncoded 03/19/18 13:51 seeds,nuts AdvReac Diarrhea Uncoded 03/19/18 13:51 All systems ED: reviewed and negative except as stated. Constitutional: Reports: weakness. Denies: fever, chills ENT ED: Denies: congestion Cardiovascular: Denies: chest pain Respiratory: Denies: dyspnea Gastrointestinal: Denies: abdominal pain Genitourinary: Denies: urgency, dysuria Musculoskeletal: Denies: back pain, neck pain, myalgia Integumentary: Denies: rash Neurological: Reports: weakness. Denies: headache, numbness, paresthesias, confusion, abnormal gait, vertigo Past Medical History - Past Medical History Attestation: Yes The following information was validated with the patient. Source: patient, old records reviewed Medical history: Reports: arthritis, coronary artery disease, GERD, hyperlipidemia, hypertension, thyroid disease, other Surgical history: Reports: angioplasty/stent (x1), cataract (Bilateral), cholecystectomy, colectomy, hysterectomy (Total), knee replacement (Right) Psychiatric history: Reports: anxiety, depression - Social History Smoking Status: Never smoker Smokeless Tobacco Status: No Alcohol use: Reports: none Drug use: Reports: none Physical Exam - General Limitations: no limitations General appearance: alert, in no apparent distress - Head Head exam: atraumatic, normocephalic, normal inspection - Eye Eye exam: Present: normal appearance, PERRL, EOMI - ENT ENT exam: normal exam, normal oropharynx, mucous membranes moist, other (Lip smacking and moving on tongue) - Neck Neck exam: Present: normal inspection, full ROM, trachea midline - Chest Chest inspection: Present: normal inspection, symmetric chest wall rise - Respiratory Respiratory exam: Present: normal lung sounds bilaterally - Cardiovascular Cardiovascular exam: Present: regular rate, normal rhythm, normal heart sounds - Abdominal Exam Abdominal exam: Present: soft, Non-Tender. Absent: tenderness, distention, guarding, rebound, rigidity - Extremities Exam Extremities exam: Present: normal inspection, full ROM, other (Constant movement of RUE with a flicking type pattern). Absent: tenderness, pedal edema - Neurological Exam Neurological exam: Present: alert, oriented X3, CN II-XII intact, normal gait - Expanded Neurological Exam Patient oriented to: Present: person, place, time Speech: Present: fluid speech Cranial nerves: EOM function (II, III, IV, ): Normal, facial sensation (V): Normal, facial palsy (VII): Normal Cerebellar function: finger to nose: Normal Motor strength - LUE: 5/5 Motor strength - RUE: 5/5 Motor strength - LLE: 5/5 Motor strength - RLE: 5/5 Sensory exam upper extremity: light touch: Normal Sensory exam lower extremity: light touch: Normal Coma Scale Eye Opening: Spontaneous Coma Scale Verbal Response: Oriented - Skin Skin exam: Present: warm, dry, intact, normal color Course Vital Signs Temperature 98.3 F 03/19/18 11:09 Pulse Rate 83 03/19/18 11:09 Respiratory Rate 20 03/19/18 11:09 Blood Pressure 146/89 03/19/18 11:09 O2 Sat by Pulse Oximetry 97 03/19/18 11:09 Temperature 98.3 F 03/19/18 11:09 Pulse Rate 66 03/19/18 14:03 Respiratory Rate 20 03/19/18 14:03 Blood Pressure 138/81 03/19/18 14:03 O2 Sat by Pulse Oximetry 94 03/19/18 14:03 Oxygen Delivery Oxygen Delivery Room Air Weakness - MDM Narrative Medical decision making narrative: 1320: Patient's workup in the emergency department demonstrates findings consistent with hyponatremia. This may be treating the patient's generalized weakness. In addition the patient's chest x-ray and other lab work remains unremarkable. The patient's lip smacking and hand movements that are rhythmic have improved after the patient received enteral. This is likely associated with the to antipsychotics she is currently taking. After discussion with the patient's family and patient they feel as though the patient cannot take care of herself at home and it was discussed with the patient that we will admit her with the likely admission to a rehabilitation facility. The patient was made aware and agrees to plan. No further questions or concerns noted at this time. We will page the hospitalist at this time and admit the patient to the hospital. 1332: Accepted by Dr. Huff. - Medical Records Medical records reviewed: Yes I reviewed the patient's medical records. - Lab Data Lab results reviewed: Yes I reviewed the patient's lab results. Result diagrams: 03/19/18 11:16 03/19/18 11:16 Lab Results 03/19/18 03/19/18 03/19/18 Range/Units 11:16 11:16 12:20 WBC 6.7 (4.3-11.1) K/mcL RBC 4.58 (3.82-4.97) M/mcL Hgb 14.8 (11.5-15.4) g/dL Hct 40.9 (35.3-44.9) % MCV 89.3 (83.0-100.0) fL MCH 32.3 (28.0-33.3) pg MCHC 36.2 H (31.6-35.5) g/dL RDW 14.2 (11.5-14.5) % Plt Count 209 (140-400) K/mcL MPV 9.4 (9.4-12.4) fL Immature Gran % 0.3 (0-4) % Seg Neutrophils % 64.6 % Lymphocytes % 25.4 % Monocytes % 8.6 % Eosinophils % 0.5 % Basophils % 0.6 % Neutrophils # 4.3 (1.6-8.9) K/mcL Lymphocytes # 1.7 (0.6-4.6) K/mcL Monocytes # 0.6 (0.0-1.3) K/mcL Eosinophils # 0.0 (0.0-0.6) K/mcL Basophils # 0.0 (0.0-0.2) K/mcL Sodium 126 L (136-145) mEq/L Potassium 3.8 (3.5-5.1) mEq/L Chloride 92 L (98-107) mEq/L Carbon Dioxide 23 (23-29) mEq/L BUN 12 (8-23) mg/dL Creatinine 0.96 (0.60-1.20) mg/dL Est GFR ( Amer) > 60 (> 60) Est GFR (Non-Af Amer) 56 L (> 60) BUN/Creatinine Ratio 13 (6-26) Glucose 129 H (70-105) mg/dL Calculated Osmolality 263 L (280-300) Calcium 9.6 (8.6-10.3) mg/dL Total Bilirubin 0.8 (0.3-1.0) mg/dL AST 30 (13-39) Units/L ALT 24 (7-52) Units/L Alkaline Phosphatase 59 (34-104) Units/L Creatine Kinase 42 (30-223) Units/L Troponin I < 0.03 (< 0.04) ng/mL Serum Total Protein 7.3 (6.4-8.9) g/dL Albumin 4.4 (3.5-5.7) g/dL Globulin 2.9 (2.4-3.5) g/dL Albumin/Globulin Ratio 1.5 (1.1-2.2) Urine Color Yellow (Yellow) Urine Clarity Clear (Clear) Urine pH 7.0 (5.0-8.0) pH Units Ur Specific [place] 1.019 (1.010-1.025) Urine Protein Negative (Neg-Trace) mg/dL Urine Glucose (UA) Normal (Normal) mg/dL Urine Ketones Negative (Negative) mg/dL Urine Blood Negative (Negative) Urine Nitrite Negative (Negative) Urine Bilirubin Negative (Negative) Urine Urobilinogen Normal (Normal) mg/dL Ur Leukocyte Esterase Large H (Negative) Urine Microscopic RBC 5-15 H (0-3) per hpf Urine Microscopic WBC 5-15 H (0-3) per hpf Ur Squamous Epith Cells Many H (None-Few) per lpf Urine Bacteria None Seen (None-Few) per hpf Hyaline Casts None Seen (None-Few) per lpf Ur Culture Indicated? NO. A (NO) - Radiology Data Radiology results reviewed: Yes I reviewed the patient's radiology results. Chest X-Ray 03/19/18 11:16 IMPRESSION: No acute process. D/ / Miguel Angel Perez MD / Miguel Angel Perez MD Interpreting Provider: Miguel Angel Perez MD Attestation Statement - Attestation Attestation: I, Luis Eduardo Webster, examined this patient and my medical decision-making was reviewed with the POLYSOMNOGRAPH TECH/PA/Advanced Practice Nurse/Resident Physician. I agree with the documented findings, disposition and treatment plan as described except to the extent set forth below. 77-year-old female presents emergency Department with concerns of generalized weakness. Family states patient was recently admitted to hospital for similar issues. Since that time she has continued to remain weak and has difficulty with activities of daily living. She now also has lipsmacking movements and uncontrolled hand movements. Patient does take multiple antipsychotics. Vital signs stable in the emergency department. No other recent trauma. Laboratory evaluation shows hyponatremia. Patient will be admitted to the hospital for further care and evaluation.
[2018-03-19 12:25] LABS: Basophils % 0.6 %; Eosinophils % 0.5 %; Hematocrit 40.9 % (35.3-44.9); Hemoglobin 14.8 g/dL (11.5-15.4); Immature Granulocytes % 0.3 % (0-4); Lymphocytes # 1.7 K/mcL (0.6-4.6); Lymphocytes % 25.4 %; Mean Corpuscular HGB Conc 36.2 g/dL (31.6-35.5); Mean Corpuscular Hemoglobin 32.3 pg (28.0-33.3); Mean Corpuscular Volume 89.3 fL (83.0-100.0); Mean Platelet Volume 9.4 fL (9.4-12.4); Monocytes # 0.6 K/mcL (0.0-1.3); Monocytes % 8.6 %; Neutrophils # 4.3 K/mcL (1.6-8.9); Platelet Count 209 K/mcL (140-400); Red Blood Count 4.58 M/mcL (3.82-4.97); Red Cell Distribution Width 14.2 % (11.5-14.5); Segmented Neutrophils % 64.6 %
[2018-03-19 12:46] LABS: Troponin I < 0.03 ng/mL (< 0.04)
[2018-03-19 12:49] LABS: Bilirubin,Urine Negative (Negative); Blood,Urine Negative (Negative); Clarity,Urine Clear (Clear); Color,Urine Yellow (Yellow); Glucose,Urine (UA) Normal (Normal); Ketones,Urine Negative (Negative); Leukocyte Esterase,Urine Large (Negative); Nitrite,Urine Negative (Negative); Protein,Urine Negative (Neg-Trace); Specific Gravity,Urine 1.019 (1.010-1.025); Urobilinogen,Urine Normal (Normal)
[2018-03-19 12:52] LABS: Bacteria,Urine None Seen per hpf (None-Few); Hyaline Casts,Urine None Seen per lpf (None-Few); Squamous Epithelial Cell,Urine Many per lpf (None-Few)
[2018-03-19 12:54] LABS: Alanine Aminotransferase 24 Units/L (7-52); Albumin 4.4 g/dL (3.5-5.7); Albumin/Globulin Ratio 1.5 (1.1-2.2); Alkaline Phosphatase 59 Units/L (34-104); Aspartate Amino Transferase 30 Units/L (13-39); BUN/Creatinine Ratio 13 (6-26); Bilirubin,Total 0.8 mg/dL (0.3-1.0); Blood Urea Nitrogen 12 mg/dL (8-23); Calcium 9.6 mg/dL (8.6-10.3); Carbon Dioxide 23 mEq/L (23-29); Chloride 92 mEq/L (98-107); Creatine Kinase 42 Units/L (30-223); Globulin 2.9 g/dL (2.4-3.5); Glucose 129 mg/dL (70-105); Osmolality,Calculated 263 (280-300); Potassium 3.8 mEq/L (3.5-5.1); Sodium 126 mEq/L (136-145); Total Protein 7.3 g/dL (6.4-8.9); eGFR For African Americans > 60 (> 60); eGFR For Non-African Americans 56 (> 60)
[2018-03-19] MEDS ORDERED: Naloxone 0.4 MG/ML INJ IVP PRN (14:03)
[2018-03-19] MEDS ORDERED: Ondansetron ODT 4 MG TAB.RAPDIS PO PRN (14:09)
[2018-03-19] MEDS ORDERED: *HR* HYDROcodone/Acet 5/325 mg TABLET PO PRN (14:09)
[2018-03-19] MEDS ORDERED: (Diclofenac Sodium [Voltaren] 1 APPL) TP PRN (14:09)
--- NOTE | 2018-03-19 14:32 | Internal Med History&Physical ---
Date of Encounter: 03/19/18 Time of Encounter: 14:30 Internal Medicine - H&P: HPI Chief complaint: Generalized weakness Admitted From: Home Plans for Post Hospital Care: Transfer Group Home Facility History of present illness: Ms. Ha is a 77 year old female presented witha chief complaint of generalized weakness. The patient was recently discharged from the hospital last week. Since then patient stated that she was drinking a lot of water to keep hydrated. Sodium was found to be 126. Patient is having generalized weakness and get more weak that she could not get out of bed. The patient is unable to take care of herself. On presentation was found that she has been smacking her lips. She has been on Seroquel at home the dose was recently changed. Patient was given Benadryl in the emergency department and her symptoms improved. Patient denied any chest pain, shortness of breath, abdominal pain, constipation or diarrhea. States that she has not been eating well recently. Past Med Surg Social Fam HX - Past Medical History Medical history: arthritis, coronary artery disease, GERD, hyperlipidemia, hypertension, thyroid disease, other Additional medical history: artifical joints,cataracts Psychiatric history: anxiety, depression - Past Surgical History Surgical History: angioplasty/stent, cataract, cholecystectomy, colectomy, hysterectomy, knee replacement Additional surgical history: cardiac stent - Social History Smoking Status: Never smoker Smokeless Tobacco Status: No Alcohol use: none Drug use: none - Family History Mother Family Member Ethnicity: Non- Living Status: Hx Family Cardiac Disorders: Yes Hx Family Cancer: Yes (Breast) Hx Family GI Disorders: Yes (Colostomy) Hx Family Neurologic Disorders: Yes (Alzheimer's disease ) Brother Family Member Ethnicity: Non- Living Status: Hx Family Respiratory Disorders: Yes (COPD) Hx Family Endocrine Disorder: Yes (diabetes) Father Family Member Ethnicity: Non- Living Status: Hx Family Cancer: Yes (Colon) Sister Family Member Ethnicity: Non- Living Status: Hx Family Cancer: Yes (Pancreatic) Internal Medicine - H&P: Meds Aripiprazole [Abilify] 0 mg PO QPM 03/09/18 [History] Clopidogrel [Plavix] 75 mg PO QPM 03/09/18 [History] Diclofenac Sodium [Voltaren] 1 appl TP QID PRN 03/09/18 [History] HYDROcodone/Acet 5/325 mg [[place] 5-325 mg] 0.5 - 1 tab PO BID PRN 03/09/18 [ History] Hydrocortisone Rectal CRM [Proctosol-Hc] 1 appl RC BID 03/09/18 [History] Ketorolac Tromethamine [Acular] 1 drop BOTH EYES DAILY 03/09/18 [History] LORazepam [Ativan] 0.5 mg PO BID PRN 03/09/18 [History] Levothyroxine [Synthroid] 150 mcg PO DAILY 03/09/18 [History] Lidocaine Patch [Lidoderm 5% patch] 1 each TP DAILY PRN 03/09/18 [History] Ondansetron HCl [Zofran] 4 mg PO Q8H PRN 03/09/18 [History] Quetiapine Fumarate [Seroquel] 50 mg PO HS 03/09/18 [History] Rosuvastatin Calcium [Crestor] 10 mg PO HS 03/09/18 [History] Sertraline [Zoloft] 150 mg PO QPM 03/09/18 [History] Valsartan [Diovan] 160 mg PO DAILY 03/09/18 [History] 3 Allergy/AdvReac Type Severity Reaction Status Date / Time codeine Allergy Itching Verified 03/19/18 13:51 Oxycodone [From Percocet] Allergy Itching Verified 03/19/18 13:51 Amoxicillin [From Augmentin] AdvReac Nausea Verified 03/19/18 13:51 cefuroxime [From Ceftin] AdvReac Itching Verified 03/19/18 13:51 clavulanic acid AdvReac Nausea Verified 03/19/18 13:51 [From Augmentin] Erythromycin Base AdvReac Nausea Verified 03/19/18 13:51 levofloxacin [From Levaquin] AdvReac Itching Verified 03/19/18 13:51 lisinopril AdvReac Cough Verified 03/19/18 13:51 melatonin AdvReac Itching Verified 03/19/18 13:51 naproxen AdvReac Itching Verified 03/19/18 13:51 tramadol AdvReac Itching Verified 03/19/18 13:51 fish Allergy Hives Uncoded 03/19/18 13:51 seeds,nuts AdvReac Diarrhea Uncoded 03/19/18 13:51 All Systems PM: A 10-system review of systems was performed and is negative for pertinent findings except as documented above in the HPI. Review of systems: Comprehensive 10 point review of system was done and it was negative other than what was mentioned above - Constitutional Constitutional: no chills, no fever(s), no night sweats - EENT Eyes: no change in vision, no discharge, no pain, no photophobia Additional comments: Dry mucous membranes Ears: no ear discharge, no ear pain, no tinnitus Nose, mouth and throat: no dysphagia, no nasal discharge, no neck pain, no sore throat - Cardiovascular Cardiovascular ROS IM: no chest pain, no diaphoresis, no dyspnea, no lightheadedness, no palpitations, no syncope - Respiratory Respiratory: no cough, no dyspnea, no wheezing, no excessive phlegm production - Gastrointestinal Gastrointestinal: no abdominal pain, no diarrhea, no hematemesis, no hematochezia, no melena, no nausea, no vomiting - Genitourinary Genitourinary: no change in urinary stream, no dysuria, no flank pain, no hematuria - Musculoskeletal Musculoskeletal ROS IM: no numbness, no tingling - Neurological Additional comments: Awake alert oriented 3. Frequent [place] movement but better than on presentation - Hematologic/Lymphatic Hematologic/Lymphatic: no easy bruising - Constitutional Vitals: Temp Pulse Resp BP Pulse Ox 98.3 F 66 20 138/81 94 03/19/18 11:09 03/19/18 14:03 03/19/18 14:03 03/19/18 14:03 03/19/18 14:03 - Head Head exam: Present: atraumatic, normocephalic - Eye Eye exam: Present: PERRL, conjuntiva pink, sclera anicteric Pupils: Present: PERRL - ENT Additional comments: Dry mucous membranes - Neck Neck exam general surgery: Present: supple, trachea midline. Absent: lymphadenopathy - Respiratory Respiratory exam: Present: CTAB. Absent: accessory muscle use, rales, rhonchi, wheezes - Cardiovascular Cardiovascular exam: Present: RRR, +S1, +S2. Absent: diastolic murmur, gallop, rubs, systolic murmur - GI/Abdominal GI/Abdominal exam: Present: normal bowel sounds, soft, no peritoneal signs. Absent: distended, tenderness - Extremities Exam Extremities exam: Present: warm, radial pulses palpable and symmetrical. Absent : calf tenderness, cyanotic, pedal edema - Neurological Exam Neurological exam: Present: oriented X3 Additional comments: Lips smacking/movements but improving - Skin Skin exam: Present: dry, intact Internal Med - H&P Results - Labs CBC & Chem 7: 03/19/18 11:16 03/19/18 11:16 - Assessment and plan (1) Hyponatremia Current Visit: Yes Status: Acute Assessment and plan: Patient states that she was drinking a lot of water, but not eating well and she was found to be dehydrated. At PO fluid restriction less than 1 L per 24 hours. Patient already given normal saline hydration at the emergency department Monitor sodium level. Check after 4 hours. Correction should not be fast, no more than 8 per 24 hours Replace potassium. Replace electrolytes as needed (2) Dehydration Current Visit: Yes Status: Acute Assessment and plan: Continue with gentle hydration with IV normal saline (3) Generalized weakness Current Visit: Yes Status: Acute Assessment and plan: Continue gentle IV hydration Physical therapy and occupational therapy Avoid sedatives/narcotics unless really needed (4) Side effect of drug Current Visit: Yes Status: Acute Assessment and plan: Lips smacking/involuntary movement probably related to cervical side effects Give him Benadryl in the emergency department Cervical dose needs to be tapered. Being held today Monitor closely (5) On esomeprazole prophylaxis Current Visit: Yes Status: Acute (6) DVT prophylaxis Current Visit: Yes Status: Acute Assessment and plan: Continue DVT prophylaxis with Lovenox - Time Spent With Patient Total time spent is greater than 50% in coordination of care (as documented) at patient's floor/unit and/or counseling patient:
[2018-03-19] MEDS: 0.9 % Sodium Chloride 1,000 ML IVC SCH ×3 (14:50→17:36)
[2018-03-19 15:29] LABS: Thyroid Stimulating Hormone 0.352 mcIU/mL (0.340-5.600)
[2018-03-19 15:39] LABS: Folate 22.2 ng/mL (3.0-16.0)
--- NOTE | 2018-03-19 17:30 | Electrocardiograph Report ---
[place] [id number] Test Date: 2018-03-19 Pat Name: Eliana Ha Department: 103 Room: 2A25 Gender: F Manager Motor: : 1940 Requested By: Steven Huff Order Number: [id number] Reading MD: Nadira Lang Measurements Intervals [place] Rate: 68 P: 20 TX: 173 QRS: -11 QRSD: 86 T: 2 QT: 394 QTc: 411 Interpretive Statements SINUS RHYTHM LOW QRS VOLTAGE IN PRECORDIAL LEADS [QRS DEFLECTION < 1.0 mV IN CHEST LEADS] MINIMAL VOLTAGE CRITERIA FOR LVH, CONSIDER NORMAL VARIANT [MEETS CRITERIA IN ONE OF: R(aVL), S(V1), R(V5), R(V5/V6)+S(V1)] Electronically Signed On 03-19-2018 17:28:15 EDT by Nadira Lang
[2018-03-19] MEDS: ARIPiprazole 10 MG TABLET PO SCH (17:40)
[2018-03-19] MEDS: Hydrocortisone Rectal 2.5% CRM 28 GM TUBE RC SCH (21:22)
[2018-03-19] MEDS: *HR* LORazepam 0.5 MG TABLET PO PRN (21:24)
[2018-03-20 05:10] LABS: Basophils # 0.1 K/mcL (0.0-0.2); Basophils % 0.8 %; Eosinophils # 0.1 K/mcL (0.0-0.6); Eosinophils % 1.2 %; Hematocrit 36.1 % (35.3-44.9); Hemoglobin 12.8 g/dL (11.5-15.4); Immature Granulocytes % 0.3 % (0-4); Immature Platelets 3.3 % (1.1-6.1); Lymphocytes # 2.5 K/mcL (0.6-4.6); Lymphocytes % 37.6 %; Mean Corpuscular HGB Conc 35.5 g/dL (31.6-35.5); Mean Corpuscular Hemoglobin 32.6 pg (28.0-33.3); Mean Corpuscular Volume 91.9 fL (83.0-100.0); Monocytes # 0.7 K/mcL (0.0-1.3); Monocytes % 10.3 %; Neutrophils # 3.3 K/mcL (1.6-8.9); Platelet Count 196 K/mcL (140-400); Red Blood Count 3.93 M/mcL (3.82-4.97); Red Cell Distribution Width 14.4 % (11.5-14.5); Segmented Neutrophils % 49.8 %
[2018-03-20 05:25] LABS: BUN/Creatinine Ratio 12 (6-26); Blood Urea Nitrogen 9 mg/dL (8-23); Calcium 8.8 mg/dL (8.6-10.3); Carbon Dioxide 21 mEq/L (23-29); Chloride 99 mEq/L (98-107); Glucose 98 mg/dL (70-105); Magnesium 1.6 mg/dL (1.6-2.6); Osmolality,Calculated 267 (280-300); Phosphorous 3.1 mg/dL (2.7-4.5); Potassium 3.5 mEq/L (3.5-5.1); Sodium 129 mEq/L (136-145); eGFR For African Americans > 60 (> 60); eGFR For Non-African Americans > 60 (> 60)
[2018-03-20] MEDS: 0.9 % Sodium Chloride 1,000 ML IVC SCH ×2 (05:29→17:27)
[2018-03-20] MEDS: *HR* Enoxaparin 40 MG/0.4 ML SYRINGE SQ SCH (05:29)
[2018-03-20] MEDS ORDERED: *HR* Enoxaparin 30 MG/0.3 ML SYRINGE SQ SCH (06:00)
[2018-03-20] MEDS: Hydrocortisone Rectal 2.5% CRM 28 GM TUBE RC SCH ×2 (09:14→20:35)
[2018-03-20] MEDS: Valsartan 160 MG TABLET PO SCH (09:15)
[2018-03-20] MEDS: Ketorolac OPTH Soln 5 ML BOTTLE BOTH EYES SCH (09:16)
[2018-03-20] MEDS ORDERED: Acetaminophen 325 MG TABLET PO PRN (13:18)
[2018-03-20] MEDS ORDERED: *HR* HYDROcodone/Acet 5/325 mg TABLET PO PRN (14:18)
[2018-03-20] MEDS ORDERED: Acetaminophen 325 MG TABLET PO SCH (16:00)
[2018-03-20] MEDS: ARIPiprazole 10 MG TABLET PO SCH (17:24)
[2018-03-20] MEDS: *HR* LORazepam 0.5 MG TABLET PO PRN (22:44)
--- NOTE | 2018-03-20 23:39 | Internal Med Progress Note ---
Date of Encounter: 03/20/18 Time of Encounter: 23:37 - Assessment and plan (1) Hyponatremia Current Visit: Yes Status: Acute (2) Acute hypokalemia Current Visit: Yes Status: Acute (3) Side effect of drug Current Visit: Yes Status: Acute - Time Spent With Patient Total time spent is greater than 50% in coordination of care (as documented) at patient's floor/unit and/or counseling patient: - Constitutional Vitals: Temp Pulse Resp BP Pulse Ox 98.8 F 72 16 153/81 96 03/20/18 19:49 03/20/18 19:49 03/20/18 19:49 03/20/18 19:49 03/20/18 19:49 Internal Medicine: Result - Labs CBC & Chem 7: 03/20/18 04:17 03/20/18 04:17 Labs: Short CBC 03/20/18 Range/Units 04:17 WBC 6.5 (4.3-11.1) K/mcL Hgb 12.8 D (11.5-15.4) g/dL Hct 36.1 (35.3-44.9) % Plt Count 196 (140-400) K/mcL Neutrophils # 3.3 (1.6-8.9) K/mcL BMP 03/20/18 04:17 Sodium 129 L Potassium 3.5 Chloride 99 Carbon Dioxide 21 L BUN 9 Creatinine 0.78 Glucose 98 Calcium 8.8 Consult Discharge Plan - Plan Referrals: Conor Braxton MD [Primary Care Provider] -
[2018-03-21] MEDS: *HR* Enoxaparin 40 MG/0.4 ML SYRINGE SQ SCH (05:52)
[2018-03-21] MEDS: 0.9 % Sodium Chloride 1,000 ML IVC SCH (05:59)
[2018-03-21 07:22] LABS: Magnesium 1.7 mg/dL (1.6-2.6); Potassium 3.5 mEq/L (3.5-5.1)
[2018-03-21] MEDS: Valsartan 160 MG TABLET PO SCH (09:23)
[2018-03-21] MEDS: Ketorolac OPTH Soln 5 ML BOTTLE BOTH EYES SCH (09:23)
[2018-03-21] MEDS: Hydrocortisone Rectal 2.5% CRM 28 GM TUBE RC SCH (09:23)
[2018-03-21 11:31] VITALS: BP 137/83
--- NOTE | 2018-03-21 11:56 | Discharge Summary ---
- NOTES TO OUTPATIENT PROVIDER Notes to Outpatient Provider: The patient was admitted to with altered mental status secondary to hyponatremia. The patient was taking excessive amounts of fluids at home. We started her on fluid restriction. We gave her a little bit of normal saline. Her sodium today is 135. She feels good. We decreased the dose of her Seroquel by 50%. She had a little bit of athetosis at admission. Orders not resulted at time of discharge: Pending orders 03/22/18 04:00 Electrolytes AM 0400 Mg Serum [Magnesium] AM 0400 03/23/18 04:00 Electrolytes AM 0400 Mg Serum [Magnesium] AM 0400 Date of Encounter: 03/21/18 Time of Encounter: 11:53 - Discharge Diagnosis (1) Hyponatremia Status: Acute (2) Acute hypokalemia Status: Acute (3) Side effect of drug Status: Acute Hospital course: Ms. Ha is a 77 year old female Discharge discussed with: patient, nurse, case management - Time Spent with Patient Total time spent providing and/or coordinating discharge services: - Discharge Medications Prescriptions: Quetiapine Fumarate [SEROquel] 25 mg PO HS #30 tablet Home Medications: Aripiprazole [Abilify] 0 mg PO QPM 03/09/18 [History] Clopidogrel [Plavix] 75 mg PO QPM 03/09/18 [History] Diclofenac Sodium [Voltaren] 1 appl TP QID PRN 03/09/18 [History] HYDROcodone/Acet 5/325 mg [Morris 5-325 mg] 0.5 - 1 tab PO BID PRN 03/09/18 [ History] Hydrocortisone Rectal CRM [Proctosol-Hc] 1 appl RC BID 03/09/18 [History] Ketorolac Tromethamine [Acular] 1 drop BOTH EYES DAILY 03/09/18 [History] LORazepam [Ativan] 0.5 mg PO BID PRN 03/09/18 [History] Levothyroxine [Synthroid] 150 mcg PO DAILY 03/09/18 [History] Lidocaine Patch [Lidoderm 5% patch] 1 each TP DAILY PRN 03/09/18 [History] Ondansetron HCl [Zofran] 4 mg PO Q8H PRN 03/09/18 [History] Quetiapine Fumarate [Seroquel] 50 mg PO HS 03/09/18 [History] Rosuvastatin Calcium [Crestor] 10 mg PO HS 03/09/18 [History] Sertraline [Zoloft] 150 mg PO QPM 03/09/18 [History] Valsartan [Diovan] 160 mg PO DAILY 03/09/18 [History] Quetiapine Fumarate [SEROquel] 25 mg PO HS #30 tablet 03/21/18 [Rx] Allergies/Adverse Reactions: 3 Allergy/AdvReac Type Severity Reaction Status Date / Time codeine Allergy Itching Verified 03/19/18 13:51 Oxycodone [From Percocet] Allergy Itching Verified 03/19/18 13:51 Amoxicillin [From Augmentin] AdvReac Nausea Verified 03/19/18 13:51 cefuroxime [From Ceftin] AdvReac Itching Verified 03/19/18 13:51 clavulanic acid AdvReac Nausea Verified 03/19/18 13:51 [From Augmentin] Erythromycin Base AdvReac Nausea Verified 03/19/18 13:51 levofloxacin [From Levaquin] AdvReac Itching Verified 03/19/18 13:51 lisinopril AdvReac Cough Verified 03/19/18 13:51 melatonin AdvReac Itching Verified 03/19/18 13:51 naproxen AdvReac Itching Verified 03/19/18 13:51 tramadol AdvReac Itching Verified 03/19/18 13:51 fish Allergy Hives Uncoded 03/19/18 13:51 seeds,nuts AdvReac Diarrhea Uncoded 03/19/18 13:51 Date of admission: 03/19/18 14:04 Primary care physician: Conor Braxton MD Discharging clinician: Gilberto Lee Anticipated date of discharge: 03/21/18 - Constitutional Vitals: Temp Pulse Resp BP Pulse Ox 98.0 F 66 16 137/83 94 03/21/18 11:28 03/21/18 11:28 03/21/18 11:28 03/21/18 11:28 03/21/18 11:28 - Respiratory Respiratory exam: Present: CTAB. Absent: accessory muscle use, rales, rhonchi, wheezes - Cardiovascular Cardiovascular exam: Present: RRR, +S1, +S2. Absent: diastolic murmur, gallop, rubs, systolic murmur - Neurological Exam Neurological exam: Present: CN II-XII intact, oriented X3, no focal deficits. Absent: pronater drift, facial droop, speech deficit - Patient Status Disposition: Home, Self-Care Condition: Fair Functional capacity at discharge: independent ambulation Overall status at discharge: patient is back to baseline - Discharge Instructions Follow Up With: Conor Braxton MD [Primary Care Provider] - Additional Instructions: Fluid restriction of 1800 mL per day. The patient is on decreased dose of Seroquel; to be discussed with her psychiatrist. - Diet and Activity Activity: increase activity as tolerated - VTE Deep Vein Thrombosis/Pulmonary Embolism Present on Admission: No
--- NOTE | 2018-03-21 13:06 | Physician Discharge Referral ---
Home Health/Hosp Referral Info Transfer to: Home Health Attending Provider: Dyana CALLEJAS Provider in Charge Post Discharge: PCP - Diagnosis (1) Hyponatremia Priority: Primary Status: Acute (2) Acute hypokalemia Priority: Secondary Status: Acute (3) Side effect of drug Priority: Secondary Status: Acute (4) Psychiatric illness Priority: Secondary Status: Acute - Respiratory Orders None Smoking Cessation: Smoking cessation has been advised. For more information, call the [place] Tobacco Quit Line at 0-072-JVMM-NOW. - Diet/Nutrition Diet/Nutrition Orders: Regular (FLUID RESTRICTION OF 1800 ML PER DAY.) - Activity Activity Orders: Up ad claudio (SOME ASSISTANCE NEEDED..) - Services Needed Following services are medically necessary services: Nursing, Physical Therapy, Occupational Therapy - Transfer Medications Prescriptions: Quetiapine Fumarate [SEROquel] 25 mg PO HS #30 tablet Home Medications: Aripiprazole [Abilify] 0 mg PO QPM 03/09/18 [History] Clopidogrel [Plavix] 75 mg PO QPM 03/09/18 [History] Diclofenac Sodium [Voltaren] 1 appl TP QID PRN 03/09/18 [History] HYDROcodone/Acet 5/325 mg [[place]udo 5-325 mg] 0.5 - 1 tab PO BID PRN 03/09/18 [ History] Hydrocortisone Rectal CRM [Proctosol-Hc] 1 appl RC BID 03/09/18 [History] Ketorolac Tromethamine [Acular] 1 drop BOTH EYES DAILY 03/09/18 [History] LORazepam [Ativan] 0.5 mg PO BID PRN 03/09/18 [History] Levothyroxine [Synthroid] 150 mcg PO DAILY 03/09/18 [History] Lidocaine Patch [Lidoderm 5% patch] 1 each TP DAILY PRN 03/09/18 [History] Ondansetron HCl [Zofran] 4 mg PO Q8H PRN 03/09/18 [History] Quetiapine Fumarate [Seroquel] 50 mg PO HS 03/09/18 [History] Rosuvastatin Calcium [Crestor] 10 mg PO HS 03/09/18 [History] Sertraline [Zoloft] 150 mg PO QPM 03/09/18 [History] Valsartan [Diovan] 160 mg PO DAILY 03/09/18 [History] Quetiapine Fumarate [SEROquel] 25 mg PO HS #30 tablet 03/21/18 [Rx] Allergies/Adverse Reactions: 3 Allergy/AdvReac Type Severity Reaction Status Date / Time codeine Allergy Itching Verified 03/19/18 13:51 Oxycodone [From Percocet] Allergy Itching Verified 03/19/18 13:51 Amoxicillin [From Augmentin] AdvReac Nausea Verified 03/19/18 13:51 cefuroxime [From Ceftin] AdvReac Itching Verified 03/19/18 13:51 clavulanic acid AdvReac Nausea Verified 03/19/18 13:51 [From Augmentin] Erythromycin Base AdvReac Nausea Verified 03/19/18 13:51 levofloxacin [From Levaquin] AdvReac Itching Verified 03/19/18 13:51 lisinopril AdvReac Cough Verified 03/19/18 13:51 melatonin AdvReac Itching Verified 03/19/18 13:51 naproxen AdvReac Itching Verified 03/19/18 13:51 tramadol AdvReac Itching Verified 03/19/18 13:51 fish Allergy Hives Uncoded 03/19/18 13:51 seeds,nuts AdvReac Diarrhea Uncoded 03/19/18 13:51 Certification: Further, I certify that my clinical findings support that this patient is homebound (i.e. absences from home require considerable and taxing effort and are for medical reasons or protestant services or infrequently or short duration when for other reasons) because: Homebound Reason: Patient requires assistance of a person or device to safely leave home Attestation: My signature below is to certify that this patient is under my care and that I, or nurse practitioner, or a physician's temporary administrative assistant working with me, has a face-to -face encounter with this patient.
== END 2018-03-21 13:21 | disposition home or self-care (01) | DRG 641 ==
LOC: EMEROO 11:07 → 2ANU 11:07 → SUATTDRO 14:04
PROVIDERS: ADMIT Hospitalist; ATTEND Internal Medicine

== ENCOUNTER 2019-12-26 19:42 | Observation (INO) ==
[2019-12-26 20:18] LABS: Hematocrit 41.2 % (35.3-44.9); Hemoglobin 14.2 g/dL (11.5-15.4); Mean Corpuscular HGB Conc 34.5 g/dL (31.6-35.5); Mean Corpuscular Hemoglobin 31.3 pg (28.0-33.3); Mean Corpuscular Volume 90.7 fL (83.0-100.0); Mean Platelet Volume 10.1 fL (9.4-12.4); Platelet Count 168 K/mcL (140-400); Red Blood Count 4.54 M/mcL (3.82-4.97); Red Cell Distribution Width 12.5 % (11.5-14.5); White Blood Count 7.2 K/mcL (4.3-11.1)
[2019-12-26 20:37] LABS: Bacteria,Urine None Seen per hpf (None-Few); Bilirubin,Urine Negative (Negative); Blood,Urine Negative (Negative); Clarity,Urine Clear (Clear); Color,Urine Yellow (Yellow); Glucose,Urine (UA) Normal (Normal); Hyaline Casts,Urine None Seen per lpf (None-Few); Ketones,Urine Negative (Negative); Leukocyte Esterase,Urine Moderate (Negative); Nitrite,Urine Negative (Negative); PH,Urine 7.5 pH Units (5.0-8.0); Protein,Urine Negative (Neg-Trace); RBC,Urine 0-3 per hpf (0-3); Specific Gravity,Urine 1.015 (1.010-1.025); Squamous Epithelial Cell,Urine Moderate per lpf (None-Few); Urobilinogen,Urine Normal (Normal); WBC,Urine 15-30 per hpf (0-3)
[2019-12-26 20:41] LABS: BUN/Creatinine Ratio 13 (6-26); Blood Urea Nitrogen 15 mg/dL (8-23); Calcium 9.3 mg/dL (8.6-10.3); Carbon Dioxide 29 mEq/L (23-29); Chloride 101 mEq/L (98-107); Glucose 102 mg/dL (70-105); Osmolality,Calculated 285 (280-300); Potassium 3.3 mEq/L (3.5-5.1); Sodium 137 mEq/L (136-145); Troponin I < 0.03 ng/mL (< 0.04); eGFR For African Americans 56 (> 60); eGFR For Non-African Americans 46 (> 60)
[2019-12-26] MEDS ORDERED: Ondansetron 4 MG/2 ML VIAL IVP PRN (22:42)
[2019-12-26] MEDS ORDERED: Naloxone 0.4 MG/ML INJ IVP PRN (22:42)
[2019-12-26] MEDS ORDERED: *HR* HYDROcodone/Acet 5/325 mg TABLET PO PRN (22:49)
[2019-12-26] MEDS ORDERED: Acetaminophen 325 MG TABLET PO PRN (22:49)
[2019-12-26] MEDS: *HR* LORazepam 0.5 MG TABLET PO PRN (23:43)
[2019-12-26] MEDS: traZODone 50 MG TABLET PO SCH (23:43)
[2019-12-26] MEDS: Gabapentin 100 MG CAPSULE PO SCH (23:44)
[2019-12-27] MEDS: carvediloL 6.25 MG TABLET PO SCH ×2 (09:04→16:46)
[2019-12-27] MEDS: Tolterodine LA (24 HR) 2 MG CAP.ER.24H PO SCH (09:10)
[2019-12-27] MEDS: Cyanocobalamin (B-12) 1,000 MCG TABLET PO SCH (09:10)
[2019-12-27] MEDS: (Valbenazine Tosylate [Ingrezza] 40 MG) PO SCH ×2 (09:11→16:48)
[2019-12-27] MEDS: (Diclofenac Sodium [Voltaren] 100 GM) TP SCH ×4 (09:11→21:09)
[2019-12-27] MEDS: Gabapentin 100 MG CAPSULE PO SCH ×2 (09:11→21:08)
[2019-12-27] MEDS: Carbidopa/Levodopa 25/100 TABLET PO SCH ×2 (09:11→21:08)
[2019-12-27 09:37] LABS: Calcium 9.1 mg/dL (8.6-10.3); Potassium 3.3 mEq/L (3.5-5.1)
[2019-12-27] MEDS: traZODone 50 MG TABLET PO SCH (21:08)
[2019-12-27] MEDS: *HR* LORazepam 0.5 MG TABLET PO PRN (23:29)
[2019-12-28 05:23] LABS: Calcium 9.2 mg/dL (8.6-10.3); Potassium 3.7 mEq/L (3.5-5.1)
[2019-12-28 07:45] VITALS: BP 109/72
[2019-12-28] MEDS: Cyanocobalamin (B-12) 1,000 MCG TABLET PO SCH (09:04)
[2019-12-28] MEDS: carvediloL 6.25 MG TABLET PO SCH (09:06)
[2019-12-28] MEDS: Gabapentin 100 MG CAPSULE PO SCH (09:06)
[2019-12-28] MEDS: Carbidopa/Levodopa 25/100 TABLET PO SCH (09:07)
[2019-12-28] MEDS: (Valbenazine Tosylate [Ingrezza] 40 MG) PO SCH (09:08)
[2019-12-28] MEDS: Tolterodine LA (24 HR) 2 MG CAP.ER.24H PO SCH (09:09)
[2019-12-28] MEDS: (Diclofenac Sodium [Voltaren] 100 GM) TP SCH (09:10)
== END 2019-12-28 11:05 | disposition home or self-care (01) ==
LOC: 3BNU 19:42 → EMEROOARM 19:42 → 3BNU 22:47
PROVIDERS: ADMIT Student in an Organized Health Care Education/Training Program; ATTEND Student in an Organized Health Care Education/Training Program